=== PATIENT | male | born 1985 | race Caucasian/White ===

== ENCOUNTER 2017-02-19 13:46 | Emergency (ER) | payer OTHER, MEDICAID, SELFPAY | END 2017-02-19 14:14 | disposition home or self-care (01) | PROVIDERS: Emergency Provider Nurse Practitioner; Family Provider Internal Medicine Adolescent Medicine; Visit Provider Nurse Practitioner | DX: A08.4 Viral intestinal infection, unspecified (principal); Z91.013 Allergy to seafood | CPT/HCPCS: 99201 ==

== ENCOUNTER 2017-03-15 16:37 | Emergency (ER) | payer OTHER, MEDICAID, SELFPAY ==
[2017-03-15 17:00] VITALS: BP 137/90; PULSE 98; RESP 16; TEMP 36.8; O2SAT 91; BMI 25.7
--- NOTE | 2017-03-15 23:45 | XR_ITS ---
XR chest 2V HISTORY: ITS.REASON: COUGH ORDERING PHYSICIAN: ANGLEA Ortiz PATIENT AGE: 32 years COMPARISON: None available FINDINGS: The cardiomediastinal silhouette and pulmonary vascularity are within normal limits. The lungs are clear without infiltrates, suspicious nodules, or pleural effusions. No acute bony abnormalities. IMPRESSION: No change with no acute finding
== END 2017-03-15 17:43 | disposition home or self-care (01) ==
PROVIDERS: Emergency Provider Physician Assistant; Family Provider Internal Medicine Adolescent Medicine; PCP Internal Medicine Adolescent Medicine
DX: J20.9 Acute bronchitis, unspecified (principal)
CPT/HCPCS: 71046; 99202; 99282; 99291

== ENCOUNTER 2017-04-03 13:59 | Emergency (ER) | payer OTHER, MEDICAID, SELFPAY ==
[2017-04-03 14:17] VITALS: BP 107/69; PULSE 96; RESP 20; TEMP 36.8; O2SAT 100; BMI 24.4
--- NOTE | 2017-04-03 14:31 | HMH.EDUTC ---
[facility] [place] Clinical Impression: Sinusitis Qualifiers: Sinusitis location: maxillary Chronicity: unspecified Qualified Code(s): J32.0 - Chronic maxillary sinusitis Disposition: Home, Self-Care Condition on Discharge: Good Instructions: Sinusitis, DI for Sinusitis Additional Instructions: Start antibiotic. Sinus infections may take 2-3 days to notice much improvement so be sure to use conservative measures as discussed for symptoms Flonase 2 spray in each nostril daily to help with nasal congestion, sinus an ear pressure/inflammation Lots of Fluids Sleep elevated Humidifer/vaporizer Augmentin can cause GI effects. Probiotics may help to prevent these symptoms Prescriptions: Amoxicillin/Potassium Clav [Augmentin 875-125 Tablet] 1 tab PO Q12H #14 tab predniSONE [Prednisone 20mg Tab] 20 mg PO BID #10 tab Referrals: Jovan Dickinson MD [Primary Care Provider] - Medical Decision Making - Medical Records Medical records reviewed: Yes: I reviewed the patient's medical records. Vital Signs: 04/03/17 14:17 Temperature 98.2 F Temperature Source Temporal Artery Scan Pulse Rate [Right] 96 H Respiratory Rate 20 Blood Pressure [Right Arm] 107/69 Blood Pressure Mean [Right Arm] 81 Blood Pressure Source [Right Arm] Automatic Cuff Blood Pressure Position [Right Arm] Sitting 02 Sat by Pulse Oximetry 100 Oxygen Delivery Method Room Air - Louis Inquiry Pt receiving controlled substance: No Louis was queried for this patient: No [facility] [place] - General Stated complaint: pnuemonia Mode of Arrival: Ambulatory Source of Information: Patient Limitations: No Limitations Description of Symptoms (Recalled from Triage Doc. by RN): RECENT PNEUMONIA, STATES STILL FEELS BAD, COUGH HEENT Symptoms (Recalled from RN notes): Yes Resp Symptoms (Recalled from RN notes): No Skin Symptoms (Recalled from RN notes): No MS Symptoms (Recalled from RN notes): No Functional Status (Recalled from RN notes): N - History of Present Illness Provider Complaint: Patient state that he recently had pneumonia State that he still is having cough, sinus drainage and nasal congestion along with sore throat States that he wanted to come back and get checked to make sure he didn't have pneumonia Also states that he has been blowing out dark yellowish green from nose - Related Data Previous Rx's Medication Instructions Recorded Amoxicillin/Potassium Clav 1 tab PO Q12H #14 tab 04/03/17 [Augmentin 875-125 Tablet] predniSONE [Prednisone 20mg 20 mg PO BID #10 tab 04/03/17 Tab] Allergies Allergy/AdvReac Type Severity Reaction Status Date / Time SHELLFISH (FOOD) Allergy Intermediate ANAPHALAXIS Uncoded 04/03/17 14:21 - Worker's Comp Is this a Worker's Comp case?: No [facility] History I have reviewed the patient's past medical history: Yes 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: Denies:: Cancer, Diabetes Mellitus Type 1, Diabetes Mellitus Type 2, MRSA Amputation: No Fractures: No - *Social History Smoking Status: Current every day smoker Tobacco Type: cigarettes Alcohol Intake: never - Psychiatric History Expresses thoughts of harming self/others: None Suicide Plan Description: No Plan ROS Obtained: Yes All systems reviewed & no additional complaints Physical Exam - General General appearance: alert, in no apparent distress - Expanded ENT Exam Nose exam: Present: sinus tenderness, other (tenderness noted in maxillary sinuses with drainage noted in back of throat) Comment: Throat red irritate drainage noted - Respiratory Respiratory exam: Present: normal lung sounds bilaterally. Absent: respiratory distress - Cardiovascular Cardiovascular exam: Present: regular rate, normal rhythm. Absent: JVD - Neurological Exam Neurological exam: Present: alert, oriented X3
--- NOTE | 2017-04-03 14:32 | XR_ITS ---
XR chest 2V HISTORY: ITS.REASON: congestion ORDERING PHYSICIAN: Kinsey Adams PATIENT AGE: 32 years COMPARISON: 03/15/2017 FINDINGS: The cardiomediastinal silhouette and pulmonary vascularity are within normal limits. The lungs are clear without infiltrates, suspicious nodules, or pleural effusions. No acute bony abnormalities. IMPRESSION: Negative chest, no acute finding
[2017-04-03 15:20] LABS: UTC Influenza A Antigen Negative (Negative); UTC Influenza B Antigen Negative (Negative); UTC Strep Screen (Rapid) Negative (Negative)
== END 2017-04-03 15:32 | disposition home or self-care (01) ==
PROVIDERS: Emergency Provider Nurse Practitioner; Family Provider Internal Medicine Adolescent Medicine; PCP Internal Medicine Adolescent Medicine
DX: J32.0 Chronic maxillary sinusitis (principal); J18.9 Pneumonia, unspecified organism
CPT/HCPCS: 71046; 87804; 87880; 99202

== ENCOUNTER → 2017-11-20 10:54 | Outpatient (CLI) | payer MEDICAID, SELFPAY ==
--- NOTE | 2017-11-20 10:57 | XR_ITS ---
XR chest 2V HISTORY: ITS.REASON: BRONCITIS ORDERING PHYSICIAN: Hayden Price MD PATIENT AGE: 32 years COMPARISON: 07/21/2017 FINDINGS: The cardiomediastinal silhouette and pulmonary vascularity are within normal limits. The lungs are clear without infiltrates, suspicious nodules, or pleural effusions. No acute bony abnormalities. Calcified granulomas present in the left midlung IMPRESSION: Negative chest, no acute finding
== END ==
PROVIDERS: PCP Internal Medicine Adolescent Medicine; Visit Provider Internal Medicine Adolescent Medicine
DX: J40 Bronchitis, not specified as acute or chronic (principal)
CPT/HCPCS: 71046

== ENCOUNTER → 2018-05-12 11:41 | Outpatient (CLI) | payer OTHER, SELFPAY ==
--- NOTE | 2018-05-12 11:46 | XR_ITS ---
XR shoulder LT min 2V HISTORY: Left shoulder pain ITS.REASON: axillary, scapular y and grashy views ORDERING PHYSICIAN: Hay Hubbard MD PATIENT AGE: 33 years Comparison: 01/22/2016 FINDINGS: No fracture or dislocation. No lytic or blastic change. There is normal mineralization. The joint spaces are well-preserved. No significant degenerative/arthritic changes. No erosive changes evident. Incidental lobe as well as small bone island in the humeral head unchanged IMPRESSION: Negative, no acute finding
== END ==
PROVIDERS: PCP Internal Medicine Adolescent Medicine; Visit Provider Orthopaedic Surgery
DX: M25.512 Pain in left shoulder (principal)
CPT/HCPCS: 73030

== ENCOUNTER → 2018-07-07 15:41 | Outpatient (CLI) | payer OTHER, SELFPAY ==
--- NOTE | 2018-07-07 15:45 | XR_ITS ---
XR orbit bilateral min 4V HISTORY: History of metallic foreign body in the eyes. Clearance for MRI needed ITS.REASON: evaluate for metal in the eye prior to MRI ORDERING PHYSICIAN: Gi Lozada MD PATIENT AGE: 33 years Comparison: None TECHNIQUE: AP views are obtained of the orbits with the patient looking up and down FINDINGS: No radio opaque foreign bodies evident. There is cloudiness of the right maxillary sinus consistent with maxillary sinus disease IMPRESSION: No radio opaque orbital foreign body identified Right maxillary sinus disease
--- NOTE | 2018-07-07 15:45 | MR_ITS ---
MR shoulder LT wo con HISTORY:Left shoulder pain, limited range of motion ITS.REASON: left shoulder pain ORDERING PHYSICIAN: Gi Lozada MD PATIENT AGE: 33 years Comparison: 05/12/2018 TECHNIQUE: Standard multiplanar multiecho sequences are performed without contrast. FINDINGS: There is a low-lying acromion with subacromial stenosis of 5 mm. There is focal increased T2 signal involving the greater tuberosity of the humerus. There is thickening with increased T2 signal involving the supraspinatus tendon and inferior to the low-lying acromion consistent with tendinopathy/tendinosis. A partial tear cannot be excluded in this region. A full-thickness tear with tendinous retraction is not apparent. Small amount fluid is present in the subacromial region. Small amount fluid is also present deep to the deltoid. The bicipital tendon is in place. No obvious labral tear. The infraspinatus and teres minor tendons and subscapularis tendons are intact. IMPRESSION: 1. Subacromial stenosis with tendinopathy/tendinosis of the supraspinatus tendon. Cannot exclude a possibility of a minute partial tear at the distal supraspinatus tendon. A full-thickness tear is not felt to be present. There is a small amount of subacromial and subdeltoid fluid. 2. Intense increased T2 signal involving the greater tuberosity of the humerus consistent with a bone bruise with some surrounding subadjacent fluid.
== END ==
LOC: RAD 15:43
PROVIDERS: PCP Internal Medicine Adolescent Medicine; Visit Provider Orthopaedic Surgery
DX: S40.019A Contusion of unspecified shoulder, initial encounter (principal)
CPT/HCPCS: 70200; 73221

== ENCOUNTER 2018-08-19 15:30 | Outpatient (RCR) | payer OTHER, SELFPAY ==
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
--- NOTE | 2018-07-22 14:35 | HMH.RHREAS ---
Rehab Reassessment Rehab OP Re-assessment Start: 07/22/18 14:04 Freq: Status: Active Protocol: Document 07/22/18 14:05 ANUSHKA (Rec: 07/22/18 14:35 ANUSHKA [id number]) Electronically Signed By Valeria Vargas OT 07/22/18 14:05 Rehab Re-assessment Objective Objective Notes Pt has not been seen in 28 days. Pt stopped coming to therapy due to continued pain. Pt returned to doctor. Doctor provided pt with a steroid injection and recommended to continue with therapy. Pt will continue to be seen twice a week in order to engage in AROM, AAROM, Strengthening exercises to left shoulder. Pt will also received modalities such as e- stim and ionto to decrease pain/inflammation. Assessment Progress Assessment Slower Than Expected Assessment Notes Pt reports his pain has improved some since last seen by therapist. He doesn't have much pain in the left shoulder until he has to engage in an activity that is overhead. 7/10 pain during overhead use/ activity. Current AROM L shoulder Flex: 136 degrees Abd: 146 degrees ER: 85 degrees IR: 75 degrees Current MMT L Shoulder Flex: 4+ Abd: 4+ ER: 4+ IR: 4+ Patient goals met N/A Goals Not Met MMT and AROM goals Revised Goals Goal AROM L shoulder Flex: 170 Abd: 170 ER: 85 IR: 75 Goal MMT L shoulder Flex: 5 Abd: 5 ER: 5 IR: 5 Plan Plan Continue with OT plan of care at this time. Frequency of Therapy 2x's a week Duration of therapy
== END 2018-08-19 15:35 | disposition home or self-care (01) ==
LOC: OT 15:30
PROVIDERS: Visit Provider Orthopaedic Surgery
DX: M79.601 Pain in right arm (principal)
CPT/HCPCS: 97014; 97033; 97035; 97110; 97164; 97165; G0283

== ENCOUNTER 2019-07-23 18:29 | Emergency (ER) | payer MEDICAID, SELFPAY ==
[2019-07-23 18:35] VITALS: BP 131/75; PULSE 91; RESP 18; TEMP 36.8; O2SAT 98; BMI 23.7
--- NOTE | 2019-07-23 18:39 | CT_ITS ---
Procedure: CT ABDOMEN PELVIS WO CON Patient Age:34Y CLINICAL INDICATION: N/V/D, RLQ PAIN Nausea vomiting and diarrhea, right lower quadrant pain 2 weeks COMPARISON: No exams were available for comparison TECHNIQUE: Axial images obtained with sagittal and coronal reformats. All CT scans at the facility use one or more dose reduction, viz: automated exposure control, ma/kV adjustment per patient size (including targeted exams where dose is matched to indication, i.e. head), or iterative reconstruction technique. FINDINGS: Lower thorax: No acute finding lung bases clear. Heart unremarkable ABDOMEN: Lack of oral and IV contrast decrease sensitivity somewhat Liver: No masses or biliary dilatation. Gallbladder: Contracted gallbladder likely accounts for upper normal wall thickness. No radiopaque stones common duct normal Pancreas: No fluid collections or prominent findings but there is a slight hazy appearance at the root of the mesentery inferior to the pancreas but nonspecific time but with this you may want check amylase and lipase to exclude pancreatitis. Scattered small nodes at the root of the mesentery and throughout mesentery could reflect mild mesenteric adenitis but overall unimpressive Spleen: unremarkable Adrenals: unremarkable Kidneys/ureters: unremarkable no urinary tract calculi nor obstruction PELVIS: Urinary bladder: Nondistended. No obvious stones or masses. Bladder wall upper normal thickness. Modest prostate. GI tract Stomach: Filled with food, mildly distended. Duodenal loop unremarkable Small-bowel: Overall WNL with upper normal caliber/upper normal wall thickness proximal small bowel/jejunum. Distal small bowel unremarkable there may be some slight increased fluid throughout small bowel. Terminal ileum of contained stool-like material which may incompetent ileocecal valve or diminished motility Appendix: Normal, and the the well visualized. Retrocecal Large bowel: Of moderate to generous solid stool at the right and transverse colon minimal to moderate stool the rectosigmoid and descending colon, no large-bowel bowel dilatation or obstruction. No wall thickening. . Peritoneum: No abnormal fluid collections. No obvious inflammatory changes. No free air. Lymph nodes: No enlarged lymph nodes apparent. But there areScattered small nodes atthroughout mesentery which could reflect mild mesenteric adenitis. Vasculature: No evidence of abdominal aortic aneurysm. No retroperitoneal hemorrhage evident. Bones: No acute fr findings. No lesions. IMPRESSION: Appendix normal . No bowel dilatation or obstruction Slight hazy appearance of the root of the mesentery, inferior to the pancreas. Nonspecific but could reflect some minor inflammation here. Recommend correlation amylase and lipase.. Scattered small nodes throughout the mesentery slight increase in number but could reflect a mild mesenteric adenitis of associated Suggestion of perhaps slight increased fluid throughout small bowel. Nonspecific Normal appearing moderate solid stool within large bowel (no significant diarrhea suggested by CT currently) Dictated by: Gregory Costello MD 07/25/2019 08:42 Electronically signed by Gregory Costello MD in [place] 07/25/2019 08:42
[2019-07-23 18:53] LABS: Basophils # 0.1 K/mm3 (0-0.2); Basophils % 0.7 % (0.1-2.0); Eosinophils # 0.9 K/mm3 (0.0-0.4); Eosinophils % 8.6 % (0.1-12.0); Hematocrit 44.8 % (42.0-52.0); Hemoglobin 14.7 g/dL (14.1-18.0); Lymphocytes # 2.2 K/mm3 (0.7-4.5); Lymphocytes % 20.9 % (10-50); Mean Corpuscular HGB Conc 32.7 g/dL (31.8-35.4); Mean Corpuscular Hemoglobin 26.3 pg (27.0-31.2); Mean Corpuscular Volume 80.4 fl (80-94); Mean Platelet Volume 7.1 fl (7.4-10.4); Monocytes # 0.6 K/mm3 (0.1-1.0); Monocytes % 6.2 % (1.7-9.3); Neutrophils # 6.6 K/mm3 (1.8-7.8); Neutrophils % 63.6 % (37.0-80.0); Platelet Count 378 K/mm3 (142-424); Red Blood Count 5.57 M/mm3 (4.60-6.20); Red Cell Distribution Width 13.8 % (11.5-17.5); White Blood Count 10.3 K/mm3 (4.8-10.8)
--- NOTE | 2019-07-23 18:54 | PC.NURSE ---
PT UNABLE TO URINATE. PT TO CT AT THIS TIME.
[2019-07-23 19:04] LABS: Alanine Aminotransferase 28 U/L (12-78); Albumin Level 4.5 g/dl (3.5-5.0); Albumin/Globulin Ratio 1.5 (1.1-1.8); Alkaline Phosphatase 74 U/L (38-126); Amylase 85 U/L (30-110); Anion Gap 12.6 mEq/L (5-15); Aspartate Amino Transferase 29 U/L (17-59); Blood Urea Nitrogen 16 mg/dl (9-20); Calcium 9.5 mg/dl (8.4-10.2); Carbon Dioxide 27 mmol/L (22.0-30.0); Chloride 105 mmol/L (98-107); Creatinine Clearance Estimated 134 mL/min (50-200); Estimated Glomerular Filt Rate 97 ml/min (>60); GFR (African American) 117 ML/MIN (>60); Globulin 3.1 g/dL (1.3-3.2); Glucose 109 mg/dl (74-100); Lipase 58 U/L (23-300); Potassium 3.6 mmoL/L (3.5-5.1); Sodium 141 mmol/L (136-145); Total Protein,Serum 7.6 g/dl (6.3-8.2)
[2019-07-23 19:13] LABS: Bilirubin,Total < 0.1 mg/dl (0.2-1.3)
--- NOTE | 2019-07-23 19:29 | HMH.EDABDPAI ---
ED Disposition Clinical Impression: Gastroenteritis Disposition: Home, Self-Care Condition on Discharge: Good Instructions: DI for Acute Abdomen Prescriptions: Promethazine HCl 50 mg PO TID 6 Days #20 tab Transmission Status: Pending to [facility] Referrals: Jovan Dickinson MD [Primary Care Provider] - - Critical Care Critical Care Time: No Attestation: On 07/23/19, the high probability of a clinically significant, sudden or life threatening deterioration of the following system(s) required my full and direct attention, intervention and personal management. The time I documented below is in addition to time spent performing reported procedures but includes the following listed in this critical care notation. Medical Decision Making - Medical Records Medical records reviewed: Yes: I reviewed the patient's medical records. - Louis Inquiry Pt receiving controlled substance: No Vital Signs: 07/23/19 18:35 Temperature 98.3 F Temperature Source Oral Pulse Rate [Right Radial] 91 H Respiratory Rate 18 Blood Pressure [Right Arm] 131/75 Blood Pressure Mean [Right Arm] 93 Blood Pressure Source [Right Arm] Automatic Cuff Blood Pressure Position [Right Arm] Sitting 02 Sat by Pulse Oximetry 98 Oxygen Delivery Method Room Air - Lab Data Lab results reviewed: Yes: I reviewed the patient's lab results. Lab Results 07/23/19 18:41: WBC 10.3, RBC 5.57, Hgb 14.7, Hct 44.8, MCV 80.4, MCH 26.3 L, MCHC 32.7, RDW 13.8, Plt Count 378, MPV 7.1 L, Neut % (Auto) 63.6, Lymph % (Auto) 20.9, [place] % (Auto) 6.2, Eos % (Auto) 8.6, Baso % (Auto) 0.7, Neut # (Auto) 6.6, Lymph # (Auto) 2.2, [place] # (Auto) 0.6, Eos # (Auto) 0.9 H, Baso # (Auto) 0.1 07/23/19 18:41: Sodium 141, Potassium 3.6, Chloride 105, Carbon Dioxide 27, Anion Gap 12.6, BUN 16, Creatinine 0.90, Estimated Creat Clear 134, Estimated GFR 97, Est GFR ( Amer) 117, Glucose 109 H, Calcium 9.5, Total Bilirubin < 0.1 L, AST 29, ALT 28, Alkaline Phosphatase 74, Total Protein 7.6, Albumin 4.5, Globulin 3.1, Albumin/Globulin Ratio 1.5, Amylase 85, Lipase 58 Result diagrams: 07/23/19 18:41 07/23/19 18:41 Orders (Tests/Meds): ED MEDICATIONS Generic Name Dose Route Start Last Admin Trade Name Freq PRN Reason Stop Dose Admin Sodium Chloride 1,000 mls @ 999 mls/hr 07/23/19 18:40 07/23/19 18:54 Sod Chlor 0.9% 1000ml Bag IV 07/23/19 19:40 999 mls/hr .Q1H1M ONE Administration Discontinued Medications Generic Name Dose Route Start Last Admin Trade Name Freq PRN Reason Stop Dose Admin Ketorolac Tromethamine 30 mg 07/23/19 19:20 Toradol 30mg/Ml Vial IV 07/23/19 19:21 ONCE ONE Ondansetron HCl 4 mg 07/23/19 18:39 07/23/19 18:54 Zofran 4mg/2ml Vial IV 07/23/19 18:40 4 mg ONCE ONE Administration ORDERS Category Date Time Status CT abdomen pelvis wo con Stat Cat Scan 07/23/19 18:39 Taken Urinalysis and Microscopic Stat Lab 07/23/19 18:39 Ordered - CT Data CT Scan: Abdomen, Pelvis Time Received: 19:[address] Reviewed: Yes: I have viewed the radiologist's interpretation Preliminary Findings: Normal/NAD Abdominal Pain HPI - General Chief Complaint: Abdominal Pain Stated Complaint: V&D, R side Abd Pain Time Seen by Provider: 07/23/19 19:29 Mode of Arrival: Ambulatory Limitations: No Limitations Description of Symptoms (Recalled from ER Triage Doc. by RN): PT C/O INTERMITTENT RLQ PAIN, N/V/D X2 WEEKS - History of Present Illness MD complaint: abdominal pain Onset (ago): week(s) Consistency: intermittent Location: diffuse Severity: moderate Severity scale (1-10): 4 Quality: stabbing, aching Radiation: RLQ Migration to: no migration Relieving factors: nothing Exacerbating factors: nothing Context: foreign travel, possible food poisoning Associated symptoms: denies other symptoms - Related Data Previous Rx's Medication Instructions Recorded Amoxicillin/Potassium Clav 1 tab PO Q12H 10 Days #20
[2019-07-23 19:36] LABS: Microscopic, Urine URINE MICROSCOPIC (MICROSCOPIC)
[2019-07-23 19:42] LABS: Appearance,Urine CLEAR (Clear); Bilirubin,Urine Negative (Negative); Blood, Urine Negative (Negative); Color,Urine YELLOW (Yellow); Glucose,Urine (UA) Negative (Negative); Ketones,Urine Negative (Negative); Leukocyte Esterase,Urine Negative (Negative); Nitrate,Urine Negative (Negative); PH,Urine 6.5 (5.0-8.5); Protein,Urine Negative (Negative); Specific Gravity, Urine 1.025 (1.005-1.030); Urobilinogen,Urine 0.2 EU/dl (0.2)
[2019-07-23 19:46] LABS: Amorphous Sediment,Urine Trace /lpf
[2019-07-23 20:13] VITALS: BP 140/94; PULSE 83; RESP 16; TEMP 36.8; O2SAT 97
== END 2019-07-23 20:17 | disposition home or self-care (01) ==
PROVIDERS: Emergency Provider Family Medicine; PCP Internal Medicine Adolescent Medicine
DX: K52.9 Noninfective gastroenteritis and colitis, unspecified (principal); F17.210 Nicotine dependence, cigarettes, uncomplicated
CPT/HCPCS: 74176; 80053; 81001; 82150; 83690; 85025; 96365; 96375; 99283; J2405

== ENCOUNTER 2019-08-11 01:46 | Emergency (ER) | payer MEDICAID, SELFPAY ==
[2019-08-11] VITALS (11 sets, daily range): BP systolic 118–160; BP diastolic 49–95; PULSE 73–99; RESP 14–18; TEMP 36.4–36.7; O2SAT 88–96; BMI 23.7
--- NOTE | 2019-08-11 01:45 | ECG_ITS ---
APPROVED REPORT Exam: Resting ECG HR:92 bpm ECG Measurements Heart Rate 92 AXES GA 164 P 51 QRSd 118 QRS 79 QT 406 T 41 QTc 502 <Conclusion> Sinus rhythm with occasional premature ventricular complexes Incomplete right bundle branch block NDST-T Changes Prolonged QT Abnormal ECG Electronically signed by : Bridger Lee, 08/12/2019 17:12:53
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
--- NOTE | 2019-08-11 02:16 | CT_ITS ---
PROCEDURE: CT ABDOMEN PELVIS W CON CLINICAL INDICATION: Post chest compressions Abdominal epigastric pain post cold 500 COMPARISON: CT ABDOMEN PELVIS WO CON from 07/23/2019 TECHNIQUE: IV Contrast: 75ML OPTIRAY 350 Oral Contrast none Axial images obtained with sagittal and coronal reformats. All CT scans at the facility use one or more dose reduction, viz: automated exposure control, ma/kV adjustment per patient size (including targeted exams where dose is matched to indication, i.e. head), or iterative reconstruction technique. FINDINGS: LOWER THORAX: Please see chest CT report ABDOMEN & PELVIS: There is mild thickening of the distal esophagus nonspecific. There is mild gastric distension. The liver, gallbladder, spleen, adrenal glands, pancreas, and kidneys have an unremarkable appearance. Unremarkable appendix. No intestinal obstruction or free air. Bowel gas pattern is nonspecific with nondistended fluid-filled loops of small bowel. No abnormal fluid collections. No acute bony findings.. Scattered small mesenteric nodes are present which are nonspecific.. There is a small left renal cyst anteriorly at 5 mm. IMPRESSION: 1. Moderate gastric distension. 2. Otherwise negative Dictated by: Suhas Jackson MD 08/11/2019 09:20 Electronically signed by Suhas Jackson MD in [place] 08/11/2019 09:20
--- NOTE | 2019-08-11 02:16 | CT_ITS ---
PROCEDURE: CT ANGIO CHEST CLINCIAL INDICATION: Post chest compressions Pain, injury, trauma, status post chest compressions now with chest pain, blunt trauma with contusion or hematoma, post code 500 COMPARISON: No exams were available for comparison TECHNIQUE: IV Contrast: 70ML OPTIRAY 350 Axial images obtained with sagittal and coronal reformats. All CT scans at the facility use one or more dose reduction, viz: automated exposure control, ma/kV adjustment per patient size (including targeted exams where dose is matched to indication, i.e. head), or iterative reconstruction technique. FINDINGS: HEART AND MEDIASTINAL STRUCTURES: No evidence of aortic aneurysm, dissection, or pulmonary embolus. There are peripheral pulmonary arteries are not well opacified. The central pulmonary arteries are unremarkable. No mediastinal or hilar mass. No evidence of mediastinal hematoma. No evidence of sternal fracture. LUNGS AND PLEURAL SPACES: Consolidation is present involving the posterior segment of the right upper lobe and superior segment of the right lower lobe. There is mild atelectatic change in the superior segment of the left lower lobe. There is mild diffuse inter lobular septal thickening. No obvious effusion. No evidence of pneumothorax. BONY STRUCTURES: No acute finding UPPER ABDOMEN: Please see abdomen report ADDITIONAL FINDINGS: No other significant abnormalities. IMPRESSION: 1. No evidence of pulmonary embolus or aortic aneurysm or dissection. 2. Bilateral airspace disease. Aspiration pneumonia is considered. There is also interlobular septal thickening which is nonspecific and could be related to fluid volume overload or inflammatory/infectious etiology. 3. No acute fracture apparent Dictated by: Suhas Jackson MD 08/11/2019 09:17 Electronically signed by Suhas Jackson MD in [place] 08/11/2019 09:17
--- NOTE | 2019-08-11 02:16 | XR_ITS ---
PROCEDURE: XR CHEST AP CLINICAL HISTORY: Post chest compressions Code blue COMPARISON: CXR2V XR chest 2V from 07/21/2017 CXR2V XR chest 2V from 11/20/2017 CXR2V XR chest 2V from 05/08/2018 CT ANGIO CHEST from 08/11/2019 XR CHEST 2V from 08/11/2019 FINDINGS: The cardiomediastinal silhouette and pulmonary vascularity are within normal limits. Study is somewhat under penetrated. There is no evidence of pneumothorax. Atelectatic changes are present in the left mid lung. There is some patchy density in the right upper lobe which could be due to underlying pneumonia No acute bony abnormalities. IMPRESSION: Right upper lobe pneumonia with left midlung atelectasis. Aspiration would be considered in this patient history of overdose Dictated by: Suhas Jackson MD 08/11/2019 08:22 Electronically signed by Suhas Jackson MD in [place] 08/11/2019 08:22
[2019-08-11 02:25] LABS: Basophils # 0.1 K/mm3 (0-0.2); Basophils % 0.9 % (0.1-2.0); Eosinophils # 0.3 K/mm3 (0.0-0.4); Eosinophils % 3.3 % (0.1-12.0); Hematocrit 42.4 % (42.0-52.0); Hemoglobin 14.5 g/dL (14.1-18.0); Lymphocytes # 1.5 K/mm3 (0.7-4.5); Mean Corpuscular HGB Conc 34.1 g/dL (31.8-35.4); Mean Corpuscular Hemoglobin 28.4 pg (27.0-31.2); Mean Corpuscular Volume 83.1 fl (80-94); Mean Platelet Volume 7.3 fl (7.4-10.4); Monocytes # 0.4 K/mm3 (0.1-1.0); Monocytes % 4.4 % (1.7-9.3); Neutrophils # 7.6 K/mm3 (1.8-7.8); Neutrophils % 76.4 % (37.0-80.0); Platelet Count 256 K/mm3 (142-424); White Blood Count 9.9 K/mm3 (4.8-10.8)
[2019-08-11 02:30] LABS: Alanine Aminotransferase 32 U/L (12-78); Albumin/Globulin Ratio 1.4 (1.1-1.8); Alkaline Phosphatase 84 U/L (38-126); Anion Gap 8.9 mEq/L (5-15); Aspartate Amino Transferase 36 U/L (17-59); Bilirubin,Total 0.2 mg/dl (0.2-1.3); Blood Urea Nitrogen 21 mg/dl (9-20); Calcium 8.6 mg/dl (8.4-10.2); Carbon Dioxide 26 mmol/L (22.0-30.0); Chloride 104 mmol/L (98-107); Creatinine Clearance Estimated 150 mL/min (50-200); Estimated Glomerular Filt Rate 111 ml/min (>60); GFR (African American) 134 ML/MIN (>60); Globulin 2.8 g/dL (1.3-3.2); Glucose 257 mg/dl (74-100); Sodium 136 mmol/L (136-145); Total Protein,Serum 6.8 g/dl (6.3-8.2)
[2019-08-11 02:33] LABS: Potassium 2.9 mmoL/L (3.5-5.1)
--- NOTE | 2019-08-11 02:43 | PC.NURSE ---
pt to radiology
[2019-08-11 02:46] LABS: Troponin I < 0.01 ng/ml (0.00-0.034)
--- NOTE | 2019-08-11 03:06 | PC.NURSE ---
notified of critical lab value
[2019-08-11 03:15] LABS: Microscopic, Urine URINE MICROSCOPIC (MICROSCOPIC)
[2019-08-11 03:16] LABS: Appearance,Urine CLEAR (Clear); Bilirubin,Urine Negative (Negative); Blood, Urine Negative (Negative); Color,Urine YELLOW (Yellow); Glucose,Urine (UA) 2+ (Negative); Ketones,Urine Negative (Negative); Leukocyte Esterase,Urine Negative (Negative); Nitrate,Urine Negative (Negative); Protein,Urine Negative (Negative); Specific Gravity, Urine >= 1.030 (1.005-1.030); Urobilinogen,Urine 0.2 EU/dl (0.2)
--- NOTE | 2019-08-11 03:16 | HMH.EDOD ---
ED Disposition Clinical Impression: Heroin use, Pneumonitis Disposition: Home, Self-Care Condition on Discharge: Good Instructions: DI for Drug Overdose in Adults Additional Instructions: call pcp for adal reyna for in am Prescriptions: predniSONE [Prednisone 20mg Tab] 20 mg PO BID #10 tab Transmission Status: Sent to [facility] Referrals: Provider,Referral, [Primary Care Provider] - - Critical Care Critical Care Time: No Attestation: On 08/11/19, the high probability of a clinically significant, sudden or life threatening deterioration of the following system(s) required my full and direct attention, intervention and personal management. The time I documented below is in addition to time spent performing reported procedures but includes the following listed in this critical care notation. Medical Decision Making - Medical Records Medical records reviewed: Yes: I reviewed the patient's medical records. - Louis Inquiry Pt receiving controlled substance: No Vital Signs: 08/11/19 01:57 08/11/19 02:18 08/11/19 04:01 Temperature 98.0 F Temperature Source Oral Pulse Rate [Right] 93 H 99 H 83 Respiratory Rate 16 18 18 Blood Pressure [Right Arm] 126/75 118/75 138/76 Blood Pressure Mean [Right Arm] 92 89 96 Blood Pressure Source [Right Arm] Automatic Cuff Blood Pressure Position [Right Arm] Sitting 02 Sat by Pulse Oximetry 88 L 92 L 94 L Oxygen Delivery Method Room Air Nasal Cannula Nasal Cannula Oxygen Flow Rate (LPM) 3 3 08/11/19 04:10 08/11/19 04:51 08/11/19 05:10 Temperature 97.6 F Temperature Source Oral Pulse Rate [Right] 81 85 77 Respiratory Rate 14 16 14 Blood Pressure [Right Arm] 138/76 140/49 L 145/84 H Blood Pressure Mean [Right Arm] 96 79 104 Blood Pressure Source [Right Arm] Automatic Cuff Blood Pressure Position [Right Arm] Sitting 02 Sat by Pulse Oximetry 96 92 L 96 Oxygen Delivery Method Nasal Cannula Nasal Cannula Nasal Cannula Oxygen Flow Rate (LPM) 3 3 3 08/11/19 05:38 08/11/19 05:39 08/11/19 06:09 Temperature 97.5 F L Temperature Source Oral Pulse Rate [Right] 88 73 76 Respiratory Rate 18 14 14 Blood Pressure [Right Arm] 160/93 H 160/93 H 131/78 Blood Pressure Mean [Right Arm] 115 115 95 Blood Pressure Source [Right Arm] Blood Pressure Position [Right Arm] 02 Sat by Pulse Oximetry 94 L 95 90 L Oxygen Delivery Method Nasal Cannula Nasal Cannula Room Air Oxygen Flow Rate (LPM) 3 3 08/11/19 06:20 Temperature Temperature Source Pulse Rate [Right] 73 Respiratory Rate 14 Blood Pressure [Right Arm] Blood Pressure Mean [Right Arm] Blood Pressure Source [Right Arm] Blood Pressure Position [Right Arm] 02 Sat by Pulse Oximetry 91 L Oxygen Delivery Method Room Air Oxygen Flow Rate (LPM) - Lab Data Lab results reviewed: Yes: I reviewed the patient's lab results. Lab Results 08/11/19 01:55: WBC 9.9, RBC 5.10, Hgb 14.5, Hct 42.4, MCV 83.1, MCH 28.4, MCHC 34.1, RDW 14.0, Plt Count 256, MPV 7.3 L, Neut % (Auto) 76.4, Lymph % (Auto) 15.0, Maries % (Auto) 4.4, Eos % (Auto) 3.3, Baso % (Auto) 0.9, Neut # (Auto) 7.6, Lymph # (Auto) 1.5, Maries # (Auto) 0.4, Eos # (Auto) 0.3, Baso # (Auto) 0.1 08/11/19 01:55: Sodium 136, Potassium 2.9 L*, Chloride 104, Carbon Dioxide 26, Anion Gap 8.9, BUN 21 H, Creatinine 0.80, Estimated Creat Clear 150, Estimated GFR 111, Est GFR ( Amer) 134, Glucose 257 H, Calcium 8.6, Total Bilirubin 0.2, AST 36, ALT 32, Alkaline Phosphatase 84, Troponin I < 0.01, Total Protein 6.8, Albumin 4.0, Globulin 2.8, Albumin/Globulin Ratio 1.4 08/11/19 01:55: SARS-CoV-2 IgG Ab (Rapid) Negative, SARS-CoV-2 IgM Ab (Rapid) Negative 08/11/19 03:07: Urine Color Yellow, Urine Appearance Clear, Urine pH 6.0, Ur Specific Purchase >= 1.030, Urine Protein Negative, Urine Glucose (UA) 2+, Urine Ketones Negative, Urine Blood Negative, Urine Nitrate Negative, Urine Bilirubin Negative, Urine Urobilinogen 0.2, Ur Leukocyte Esterase Negative,
[2019-08-11 03:27] LABS: Barbiturates Screen,Urine Negative ng/ml (<200)
[2019-08-11 03:28] LABS: Benzodiazepines Screen,Urine Negative ng/ml (<200)
[2019-08-11 03:29] LABS: Amphetamine/Metha Screen,Urine Negative ng/ml (<1000); Bacteria,Urine 1+ /lpf; Cannabinoid Screen,Urine Negative ng/ml (<50); Mucus,Urine 1+ /lpf
[2019-08-11 03:30] LABS: Cocaine Screen,Urine Negative ng/ml (<300); Methadone Screen,Urine Negative ng/ml (<300)
[2019-08-11 03:31] LABS: Opiate Screen,Urine Negative ng/ml (<300)
[2019-08-11 03:32] LABS: Phencyclidine Screen,Urine Negative ng/ml (<25)
[2019-08-11 04:20] LABS: Coronavirus 19 IgG Antibody Negative (Negative); Coronavirus 19 IgM Antibody Negative (Negative)
--- NOTE | 2019-08-11 05:30 | XR_ITS ---
PROCEDURE: XR CHEST 2V CLINICAL HISTORY: chest pain with SOA COMPARISON: CXR2V XR chest 2V from 11/20/2017 CXR2V XR chest 2V from 05/08/2018 CT ANGIO CHEST from 08/11/2019 XR CHEST AP from 08/11/2019 FINDINGS: The cardiomediastinal silhouette and pulmonary vascularity are within normal limits. Persistent increased density is noted in the right upper lobe consistent with pneumonia. Aspiration should be considered in this patient with history of overdose and assess the taken. Atelectatic changes are present in the left midlung. No evidence of pneumothorax. No acute bony abnormalities. IMPRESSION: Right upper lobe pneumonia and left midlung atelectasis. No significant change Dictated by: Suhas Jackson MD 08/11/2019 08:23 Electronically signed by Suhas Jackson MD in [place] 08/11/2019 08:23
--- NOTE | 2019-08-11 05:50 | PC.NURSE ---
O2 turned off for RA trial per Dr Ann
--- NOTE | 2019-08-11 06:07 | PC.NURSE ---
Pt is continuously bouncing up and down with his O2 sats from 86 to 92 on room air, consistent with sleep apnea, pt has a loud audible snore.
[2019-08-11 06:19] LABS: Troponin I 0.01 ng/ml (0.00-0.034)
--- NOTE | 2019-08-11 06:49 | PC.NURSE ---
Pt demonstrated Insitive Spirometer 10 times up to 1999
--- NOTE | 2019-08-11 06:51 | PC.NURSE ---
Pt is discharged, is calling for a ride.
== END 2019-08-11 07:55 | disposition home or self-care (01) ==
PROVIDERS: Emergency Provider Emergency Medicine
DX: T40.1X1A Poisoning by heroin, accidental (unintentional), initial encounter (principal); J70.2 Acute drug-induced interstitial lung disorders; Y92.009 Unspecified place in unspecified non-institutional (private) residence as the place of occurrence of the external cause; K21.9 Gastro-esophageal reflux disease without esophagitis; F17.210 Nicotine dependence, cigarettes, uncomplicated
CPT/HCPCS: 71045; 71046; 71275; 74177; 80053; 80305; 81001; 84484; 85025; 86328; 93005; 96365; 96366; 96375; 99285; Q9967

== ENCOUNTER → 2019-08-17 14:22 | Outpatient (CLI) | payer MEDICAID, SELFPAY ==
[2019-08-17 16:42] LABS: Opiate Screen,Urine Negative ng/ml (<300); Phencyclidine Screen,Urine Negative ng/ml (<25)
[2019-08-17 17:11] LABS: Barbiturates Screen,Urine Negative ng/ml (<200)
[2019-08-17 17:12] LABS: Amphetamine/Metha Screen,Urine Negative ng/ml (<1000); Benzodiazepines Screen,Urine Negative ng/ml (<200)
[2019-08-17 17:13] LABS: Cocaine Screen,Urine Negative ng/ml (<300); Methadone Screen,Urine Negative ng/ml (<300)
[2019-08-17 17:14] LABS: Cannabinoid Screen,Urine Negative ng/ml (<50)
== END ==
PROVIDERS: Visit Provider Nurse Practitioner Psychiatric/Mental Health
DX: Z02.83 Encounter for blood-alcohol and blood-drug test (principal)
CPT/HCPCS: 80305

== ENCOUNTER → 2019-10-03 20:15 | Outpatient (CLI) | payer MEDICAID, SELFPAY | PROVIDERS: PCP Internal Medicine Adolescent Medicine; Visit Provider Specialist | DX: G47.9 Sleep disorder, unspecified (principal); R06.83 Snoring; R40.0 Somnolence; Z76.89 Persons encountering health services in other specified circumstances | CPT/HCPCS: G0399 ==

== ENCOUNTER 2019-12-14 17:31 | Emergency (ER) | payer MEDICAID, SELFPAY ==
[2019-12-14 17:42] VITALS: BP 138/87; PULSE 66; RESP 19; TEMP 36.6; O2SAT 98; BMI 23.6
--- NOTE | 2019-12-14 18:10 | HMH.EDUTC ---
[facility] [place] Disposition Clinical Impression: Bronchitis URI (upper respiratory infection) Qualifiers: URI type: unspecified URI Qualified Code(s): J06.9 - Acute upper respiratory infection, unspecified Disposition: Home, Self-Care Condition on Discharge: Good Instructions: Acute Bronchitis, DI for Acute Bronchitis, Sore Throat, DI for Nasal Congestion Additional Instructions: ? Start antibiotic today. Be sure to complete entire prescription even if feeling better ? Monitor temp. Tylenol every 4 hours as needed and / or ibuprofen every 6 hours as needed ( As long as your primary care physician has told you that it ok to take both. For fever/aches/pains ER if no less than 101 despite Tylenol or Motrin ? Humidifier/vaporizer or hot steamy shower ? Inhaler every 4-6 hours as needed like we discussed. If unsure how to use it, ask pharmacist to demonstrate how. Should help open airways and improve cough, wheezing, and shortness of breath ? Mucinex during the day for your cough and cough suppressant only at night. Be sure to drink lots of water. Insurance may not cover a prescriptions for mucinex. Might be cheaper to get 400mg tablets and take 2 tablet in the morning, mid-day and evening with lots of water. Start steroid today. Helps with inflammation therefore, cough and wheezing. Follow directions on the package. Reviewed side effects. Patient reports taking them before. Follow up IMMEDIATELY for new or worsening of symptoms OR no noticeable improvement over the next 48-72 hours. 911 immediately for any life threatening symptoms such as chest pain or difficulty breathing Prescriptions: Albuterol Sulfate [Proventil-HFA 90mcg/puff Inh] 1 - 2 puffs IH Q4HP PRN #1 inh PRN Reason: Shortness Of Breath Transmission Status: Pending to [facility] methylPREDNISolone [Medrol 4mg tab] 4 mg PO DIRECTED #21 tab Transmission Status: Pending to [facility] Azithromycin [Z-Marbin 250mg Tab] 250 mg PO DIRECTED #6 tab Transmission Status: P[facility] to [facility] Referrals: Jovan Dickinson MD [Primary Care Provider] - As needed Forms: Work/School Release Time of Disposition: 18:20 Medical Decision Making - Louis Inquiry Pt receiving controlled substance: No Louis was queried for this patient: No Vital Signs: 12/14/19 17:42 Temperature 97.8 F Temperature Source Oral Pulse Rate [Radial] 66 Respiratory Rate 19 Blood Pressure [Right Arm] 138/87 Blood Pressure Mean [Right Arm] 104 Blood Pressure Source [Right Arm] Automatic Cuff Blood Pressure Position [Right Arm] Sitting 02 Sat by Pulse Oximetry 98 Oxygen Delivery Method Room Air Medical Decision Narrative: Patient states that he has taken azithromycin in the past without reactions or complications, discussed chest xray and patient declined at this time [facility] [place] HPI - General Stated complaint: COUGH Time Seen by Provider: 12/14/19 18:10 Mode of Arrival: Ambulatory Source of Information: Patient Limitations: No Limitations Description of Symptoms (Recalled from Triage Doc. by RN): cough and chest congestion x 2 weeks HEENT Symptoms (Recalled from RN notes): Yes Resp Symptoms (Recalled from RN notes): No Skin Symptoms (Recalled from RN notes): No MS Symptoms (Recalled from RN notes): No Functional Status (Recalled from RN notes): wnl - History of Present Illness Provider Complaint: Patient states that he is an everyday smoker and typically gets bronchitis around this time every year and has to have a round of antibiotics States that he has been having cough and nasal congestion and feels like it is trying to move into his chest so he came in to get checked before he ended up with pneumonia again - Related Data Home Medications Medication Instructions Recorded Confirmed cariprazine 1.5 mg capsule 1.5 mg PO DAILY 09/19/19 11/09/19 naltrexone microspheres 380 mg 380 mg IM each 09/19/19 11/09/19 intramuscular suspension,extended release P
[2019-12-14 18:26] VITALS: BP 138/87; PULSE 66; RESP 19; TEMP 36.6; O2SAT 98
== END 2019-12-14 18:27 | disposition home or self-care (01) ==
PROVIDERS: Emergency Provider Nurse Practitioner; PCP Internal Medicine Adolescent Medicine
DX: J20.9 Acute bronchitis, unspecified (principal); F41.8 Other specified anxiety disorders; K21.9 Gastro-esophageal reflux disease without esophagitis; J45.909 Unspecified asthma, uncomplicated; F17.210 Nicotine dependence, cigarettes, uncomplicated; Z79.899 Other long term (current) drug therapy
CPT/HCPCS: 99201

== ENCOUNTER 2019-12-31 16:59 | Emergency (ER) | payer MEDICAID, SELFPAY ==
[2019-12-31 17:07] VITALS: BP 146/96; PULSE 89; RESP 16; TEMP 36.8; O2SAT 98; BMI 27.8
[2019-12-31 17:25] VITALS: BP 146/96; PULSE 89; RESP 16; TEMP 36.8; O2SAT 98; BMI 27.9
--- NOTE | 2019-12-31 17:27 | XR_ITS ---
PROCEDURE: XR KNEE RT 3V CLINICAL INDICATION: chainsaw injury COMPARISON: No exams were available for comparison FINDINGS: No fracture or dislocation. No lytic or blastic change. There is normal mineralization. The joint spaces are well-preserved. There is minor cortical irregularity of the distal femur possibly due to old nondisplaced incomplete fracture or possibly a small avulsive cortical irregularity no significant degenerative/arthritic changes. No erosive changes evident. Other findings:None. IMPRESSION: No acute findings. Dictated by: Dr. Obi Baca MD 01/01/2020 08:39 Dr. Obi Baca MD in [place] 01/01/2020 08:39
--- NOTE | 2019-12-31 18:54 | HMH.EDUTC ---
[facility] [place] Disposition Clinical Impression: Contact with chainsaw as cause of accidental injury, Need for Tdap vaccination Laceration of right knee Qualifiers: Encounter type: initial encounter Qualified Code(s): S81.011A - Laceration without foreign body, right knee, initial encounter Disposition: Home, Self-Care Condition on Discharge: Good Instructions: How to Care for a Laceration After Repair, DI for Laceration Repair -- Complex Suture, How to Use a Knee Immobilizer, Tetanus, Diphtheria, Pertussis (Tdap) Vaccine Additional Instructions: The sutures need to be removed in 10 to 12 days. Keep the wound clean and dry. Keep a dressing on it if you are going to be getting it dirty. Watch the for signs of infection, such as redness, swelling, drainage, fever. etc. Take the antibiotics as directed. Take tylenol or ibuprofen for pain. Follow up with your regular doctor. GO TO THE ER FOR ANY WORSENING SYMPTOMS OR CONCERNS. Prescriptions: cephALEXin [Keflex 500mg Cap] 500 mg PO Q6H 10 Days #40 cap Transmission Status: Received by [id number] Referrals: Jovan Dickinson MD [Primary Care Provider] - Forms: Work/School Release Time of Disposition: 19:04 Medical Decision Making - Medical Records Medical records reviewed: No: I reviewed the patient's medical records. - Louis Inquiry Pt receiving controlled substance: No Vital Signs: 12/31/19 17:07 12/31/19 17:25 12/31/19 19:18 Temperature 98.2 F 98.2 F 98.2 F Temperature Source Oral Oral Pulse Rate 89 Pulse Rate [Left Radial] 89 89 Respiratory Rate 16 16 16 Blood Pressure 146/96 H Blood Pressure [Left Arm] 146/96 H 146/96 H Blood Pressure Mean [Left Arm] 112 112 Blood Pressure Source [Left Arm] Automatic Cuff Automatic Cuff Blood Pressure Position [Left Arm] Sitting Sitting 02 Sat by Pulse Oximetry 98 98 Oxygen Delivery Method Room Air Room Air Orders (Tests/Meds): ED MEDICATIONS Discontinued Medications Generic Name Dose Route Start Last Admin Trade Name Freq PRN Reason Stop Dose Admin Ceftriaxone Sodium 1 gm 12/31/19 19:00 12/31/19 19:10 Ceftriaxone 1gm Vial IM 12/31/19 19:01 1 gm ONCE ONE Administration Protocol Lidocaine HCl 0 ml 12/31/19 19:00 12/31/19 19:10 Lidocaine 1% 5ml Pf Vial IM 12/31/19 19:01 2.1 ml ONCE ONE Administration Tetanus/Reduced Diphtheria/Acell Pertussis 0.5 ml 12/31/19 19:00 12/31/19 19:10 Tet/Diphth/Pert-Adult 0.5ml Syringe IM 12/31/19 19:01 0.5 ml .ONCE ONE Administration ORDERS Category Date Time Status Knee XR right 3 views [XR knee RT 3V] Stat Exams 12/31/19 17:27 Taken [facility] [place] HPI - General Stated complaint: AO [id number] @1500 lac to R knee Time Seen by Provider: 12/31/19 17:15 Mode of Arrival: Ambulatory Source of Information: Patient Limitations: No Limitations Description of Symptoms (Recalled from Triage Doc. by RN): PATIENT C/O LACERATION TO RIGHT KNEE. 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 UNKNOWN WHEN LAST TETANUS SHOT WAS HEENT Symptoms (Recalled from RN notes): No Resp Symptoms (Recalled from RN notes): No Skin Symptoms (Recalled from RN notes): Yes MS Symptoms (Recalled from RN notes): No Functional Status (Recalled from RN notes): WNL - History of Present Illness Provider Complaint: He was working with a chain saw when he slipped and the running chain saw came down on his right knee. He has a laceration over his knee cap area. His tetanus immunization is not up to date. - Related Data Previous Rx's Medication Instructions Recorded cephALEXin [Keflex 500mg Cap] 500 mg PO Q6H 10 Days #40 cap 12/31/19 Allergies Allergy/AdvReac Type Severity Reaction Status Date / Time shellfish derived Allergy Severe Anaphylaxis Verified 11/09/19 15:21 - Worker's Comp Is this a Worker's Comp case?: No [facility] History - Hepatitis A Screen Drug use history?: No High risk sexual behaviors?: No
[2019-12-31 19:18] VITALS: BP 146/96; PULSE 89; RESP 16; TEMP 36.8; O2SAT 98
== END 2019-12-31 19:20 | disposition home or self-care (01) ==
PROVIDERS: Emergency Provider Nurse Practitioner Family; PCP Internal Medicine Adolescent Medicine
DX: S81.011A Laceration without foreign body, right knee, initial encounter (principal); W31.2XXA Contact with powered woodworking and forming machines, initial encounter; Y92.89 Other specified places as the place of occurrence of the external cause; F41.8 Other specified anxiety disorders; F17.210 Nicotine dependence, cigarettes, uncomplicated; Z23 Encounter for immunization; K21.9 Gastro-esophageal reflux disease without esophagitis
CPT/HCPCS: 12002; 73562; 90471; 90715; 96372; 99202

== ENCOUNTER 2020-01-10 17:27 | Emergency (ER) | payer MEDICAID, SELFPAY ==
[2020-01-10 17:30] VITALS: BP 116/75; PULSE 77; RESP 22; TEMP 36.7; O2SAT 95; BMI 27.8
--- NOTE | 2020-01-10 17:49 | HMH.EDUTC ---
[facility] [place] Disposition Clinical Impression: Pneumonia Qualifiers: Pneumonia type: due to unspecified organism Laterality: right Lung location: lower lobe of lung Qualified Code(s): J18.9 - Pneumonia, unspecified organism Sinusitis Qualifiers: Sinusitis location: unspecified location Chronicity: acute Recurrence: non-recurrent Qualified Code(s): J01.90 - Acute sinusitis, unspecified Disposition: Home, Self-Care Condition on Discharge: Good Instructions: Pneumonia-Adult Additional Instructions: Drink plenty of fluids. Take tylenol or ibuprofen for pain or fever. Take the medications as directed. Follow up with your regular doctor. GO TO THE ER FOR ANY WORSENING SYMPTOMS Don't start the oral steroids until tomorrow, since you had the shot here today. The cough medication (promethazine dm) will make you drowsy, so don't drive or operate heavy machinery after taking it. Eat yogurt a few times per day or take a probiotic while you are on the antibiotics. Prescriptions: Albuterol Sulfate [Albuterol Sulfate Hfa] 2 puffs IH Q6HP PRN 30 Days #1 hfa.aer.ad PRN Reason: Shortness Of Breath Transmission Status: Received by [facility] Promethazine/Dextromethorphan [Promethazine-Dm Syrup] 5 ml PO Q6HP PRN #240 syrup PRN Reason: Cough Transmission Status: Received by [facility] Amoxicillin/Potassium Clav [Augmentin 875-125 Tablet] 1 tab PO Q12H 10 Days #20 tab Transmission Status: Received by [facility] Doxycycline Hyclate [Doxycycline 100mg Capsule] 100 mg PO Q12 10 Days #20 cap Transmission Status: Received by [facility] methylPREDNISolone [Medrol] 4 mg PO DIRECTED 6 Days #21 tab.ds.pk Transmission Status: Received by [facility] Referrals: Jovan Dickinson MD [Primary Care Provider] - Forms: Work/School Release Time of Disposition: 19:03 Medical Decision Making - Medical Records Medical records reviewed: No: I reviewed the patient's medical records. - Louis Inquiry Pt receiving controlled substance: No Vital Signs: 01/10/20 17:30 01/10/20 19:12 Temperature 98.1 F 98.1 F Temperature Source Oral Pulse Rate 77 Pulse Rate [Left Brachial] 77 Respiratory Rate 22 22 Blood Pressure 116/75 Blood Pressure [Left Arm] 116/75 Blood Pressure Mean [Left Arm] 88 Blood Pressure Source [Left Arm] Automatic Cuff Blood Pressure Position [Left Arm] Sitting 02 Sat by Pulse Oximetry 95 Oxygen Delivery Method Room Air Orders (Tests/Meds): ED MEDICATIONS Discontinued Medications Generic Name Dose Route Start Last Admin Trade Name Yosef PRN Reason Stop Dose Admin Ceftriaxone Sodium 1 gm 01/10/20 18:48 01/10/20 18:55 Ceftriaxone 1gm Vial IM 01/10/20 18:49 1 gm ONCE ONE Administration Protocol Lidocaine HCl 0 ml 01/10/20 18:48 01/10/20 18:55 Lidocaine 1% 5ml Pf Vial IM 01/10/20 18:49 2.1 ml ONCE ONE Administration Methylprednisolone Sodium Succinate 125 mg 01/10/20 18:48 01/10/20 18:55 Methylprednisolone Sod Succ 125mg Vial IM 01/10/20 18:49 125 mg ONCE ONE Administration ORDERS Category Date Time Status XR chest 2V Stat Exams 01/10/20 17:51 Taken Covid-19 Nasal PCR Sendout [facility] Stat Lab 01/10/20 17:55 Received - Radiology Data #1 Image(s): Chest Image Reviewed: Yes I reviewed the patient's radiology image Preliminary Findings: Abnormal possible right lower lobe pneumonia. [facility] [place] HPI - General Stated complaint: possible bronchitis or pneumonia Time Seen by Provider: 01/10/20 17:49 Mode of Arrival: Ambulatory Source of Information: Patient Limitations: No Limitations Description of Symptoms (Recalled from Triage Doc. by RN): PATIENT C/O COUGH WITH CLEAR SPUTUM AND SOA X 2 DAYS; BELIEVES HE HAS BRONCHITIS HEENT Symptoms (Recalled from RN notes): No Resp Symptoms (Recalled from RN notes): Yes Skin Symptoms (Recalled from RN notes): No MS Symptoms (Recalled from RN notes): No
--- NOTE | 2020-01-10 17:51 | XR_ITS ---
PROCEDURE: XR CHEST 2V CLINICAL HISTORY: COUGH Shortness of air, cough, smoker COMPARISON: CR CXR2V XR chest 2V from 05/08/[address] ANGIO CHEST from 08/11/2019 CR XR CHEST 2V from 08/11/2019 CR XR CHEST AP from 08/11/2019 FINDINGS: The cardiomediastinal silhouette and pulmonary vascularity are within normal limits. Changes of COPD. Mild atelectatic changes right lower lobe. There is a faint nodular density in the right lung base overlying the 5th rib anteriorly possibly due to nipple shadow. Follow-up may confirm. Increased density overlies the left 1st rib anteriorly and could be related to sclerosis of the rib versus parenchymal opacity in the chest. No acute bony abnormalities. IMPRESSION: COPD with right basilar atelectasis and possible nipple shadow on the right. Nonspecific increased density overlies left 1st rib and may be due to an area of rib sclerosis or parenchymal opacification. Follow-up may confirm stability. Dictated by: Suhas Jackson MD 01/11/2020 05:20 Suhas Jackson MD in [place] 01/11/2020 05:20
[2020-01-10 19:12] VITALS: BP 116/75; PULSE 77; RESP 22; TEMP 36.7; O2SAT 95
[2020-01-12 17:47] LABS: Covid-19 Nasal PCR Sendout Lex Not Detected
== END 2020-01-10 19:15 | disposition home or self-care (01) ==
PROVIDERS: Emergency Provider Nurse Practitioner Family; PCP Internal Medicine Adolescent Medicine
DX: Z20.828 Contact with and (suspected) exposure to other viral communicable diseases (principal); J18.9 Pneumonia, unspecified organism; J01.90 Acute sinusitis, unspecified; K21.9 Gastro-esophageal reflux disease without esophagitis; J45.909 Unspecified asthma, uncomplicated; F41.8 Other specified anxiety disorders; Z79.899 Other long term (current) drug therapy
CPT/HCPCS: 71046; 96372; 99202; U0004

== ENCOUNTER 2020-01-26 22:36 | Emergency (ER) | payer MEDICAID, SELFPAY ==
[2020-01-26 22:46] VITALS: BP 156/98; PULSE 81; RESP 16; TEMP 36.5; O2SAT 98; BMI 27.9
--- NOTE | 2020-01-26 23:10 | HMH.EDWNDL ---
ED Disposition Clinical Impression: Open wound of right knee Qualifiers: Encounter type: initial encounter Qualified Code(s): S81.001A - Unspecified open wound, right knee, initial encounter Disposition: Home, Self-Care Condition on Discharge: Good Instructions: DI for Wound Dehiscence Additional Instructions: call pcp about culture results and keep clean and dressed Prescriptions: Mupirocin [Bactroban 2% Ointment 22gm tube] 1 applicatio TP BID #1 tube Transmission Status: Pending to [facility] Referrals: Jovan Dickinson MD [Primary Care Provider] - - Critical Care Critical Care Time: No Attestation: On 01/26/20, the high probability of a clinically significant, sudden or life threatening deterioration of the following system(s) required my full and direct attention, intervention and personal management. The time I documented below is in addition to time spent performing reported procedures but includes the following listed in this critical care notation. Medical Decision Making - Medical Records Medical records reviewed: Yes: I reviewed the patient's medical records. - Louis Inquiry Pt receiving controlled substance: No Vital Signs: 01/26/20 22:46 Temperature 97.7 F Temperature Source Temporal Artery Scan Pulse Rate [Right Brachial] 81 Respiratory Rate 16 Blood Pressure [Right Arm] 156/98 H Blood Pressure Mean [Right Arm] 117 Blood Pressure Source [Right Arm] Automatic Cuff Blood Pressure Position [Right Arm] Sitting 02 Sat by Pulse Oximetry 98 Oxygen Delivery Method Room Air Orders (Tests/Meds): ORDERS Category Date Time Status Wound Culture and Gram Stain Stat Micro 01/26/20 23:32 Received Wound/Laceration HPI - General Chief Complaint: Wound/Laceration Stated Complaint: AO 1024 lac, Top of Lac is open,red Time Seen by Provider: 01/26/20 23:10 Mode of Arrival: Family Vehicle Source of Information: Patient, Medical Record Limitations: No Limitations Description of Symptoms (Recalled from ER Triage Doc. by RN): wants to have his rle wound checked out. stated he had sutures placed in his knee from a chainsaw accident on 12/31/19; sutures removed 10 days later. noted a large scab came off and he is afraid underneath it looks infected. wants a re-eval of the site. - History of Present Illness HPI narrative: pt with prev lac to rt knee and was doing ok but opened tonight - no fever or other c/o Onset (ago): day(s) Extremity Location: Right: knee Place: home Patient tetanus UTD: Yes Context: other (prev lac ) Associated symptoms: none - Related Data Previous Rx's Medication Instructions Recorded Mupirocin [Bactroban 2% Ointment 1 applicatio TP BID #1 tube 01/26/20 22gm tube] Allergies Allergy/AdvReac Type Severity Reaction Status Date / Time shellfish derived Allergy Severe Anaphylaxis Verified 11/09/19 15:21 [facility] History - Hepatitis A Screen Drug use history?: No High risk sexual behaviors?: No History of sexually transmitted infection?: No Currently employed?: No Childcare worker?: No Do you have indoor plumbing?: Yes Do you have electricity?: Yes Attestation statement:: This patient has been screened for Hepatitis A risk factors. I have reviewed the patient's past medical history: Yes 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: Reports:: Anxiety, Asthma, Depression, Gastroesophageal Reflux Disease(GERD) Denies:: Cancer, Diabetes Mellitus Type 1, Diabetes Mellitus Type 2, MRSA Other Surgeries: Yes: No Previous Surgery Amputation: No Fractures: No - Social History Smoking Status: Current every day smoker Tobacco Type: cigarettes # Packs/Day (cigarettes): 1 Alcohol Intake: never Alcohol Intake Frequency:: a few times a month Substance Use Type: denies use Occupational Status: other Housing: house Household Members: children, spouse - Psychiatric History Pschychiatric History:: Reports:: Anxiety, Depression Family Hx:: Diabetes, Hypertension ROS Obt
[2020-01-27 00:01] VITALS: BP 129/83; PULSE 81; RESP 16; TEMP 36.7; O2SAT 95
== END 2020-01-27 00:08 | disposition home or self-care (01) ==
PROVIDERS: Emergency Provider Emergency Medicine; PCP Internal Medicine Adolescent Medicine
DX: L03.115 Cellulitis of right lower limb (principal); B95.7 Other staphylococcus as the cause of diseases classified elsewhere; F41.9 Anxiety disorder, unspecified; K21.9 Gastro-esophageal reflux disease without esophagitis; J45.909 Unspecified asthma, uncomplicated; F17.210 Nicotine dependence, cigarettes, uncomplicated
CPT/HCPCS: 87070; 87077; 87186; 87205; 99282

== ENCOUNTER 2020-03-15 17:34 | Emergency (ER) | payer MEDICAID, SELFPAY ==
[2020-03-15 17:36] VITALS: BP 141/75; PULSE 90; RESP 14; TEMP 36.9; O2SAT 98; BMI 27.8
--- NOTE | 2020-03-15 17:53 | HMH.EDUTC ---
[facility] – [place] Disposition Clinical Impression: Bronchitis Sinusitis Qualifiers: Sinusitis location: unspecified location Chronicity: acute Recurrence: non-recurrent Qualified Code(s): J01.90 - Acute sinusitis, unspecified Disposition: Home, Self-Care Condition on Discharge: Good Instructions: Sinusitis, DI for Sinusitis Additional Instructions: Drink plenty of fluids. Take tylenol for pain or fever. Return if you begin to have difficulty breathing. Follow up with your regular doctor. GO TO THE ER FOR ANY WORSENING SYMPTOMS Prescriptions: methylPREDNISolone [Medrol] 4 mg PO DIRECTED 6 Days #21 tab.ds.pk Transmission Status: Received by [facility] Benzonatate [Tessalon Perle 100mg Cap] 100 mg PO TIDP PRN #30 cap PRN Reason: Cough Transmission Status: Received by [facility] Azithromycin [Z-Marbin 250mg Tab*] 250 mg PO UD DOSE PK #6 tab Transmission Status: Received by [facility] Referrals: Jovan Dickinson MD [Primary Care Provider] - Forms: Work/School Release Time of Disposition: 18:36 Medical Decision Making - Medical Records Medical records reviewed: No: I reviewed the patient's medical records. - Louis Inquiry Pt receiving controlled substance: No Vital Signs: 03/15/20 17:36 03/15/20 18:38 Temperature 98.5 F 98.5 F Temperature Source Oral Pulse Rate 90 Pulse Rate [Right] 90 Respiratory Rate 14 14 Blood Pressure 141/75 H Blood Pressure [Right Arm] 141/75 H Blood Pressure Mean [Right Arm] 97 02 Sat by Pulse Oximetry 98 Orders (Tests/Meds): ED MEDICATIONS Discontinued Medications Generic Name Dose Route Start Last Admin Trade Name Freq PRN Reason Stop Dose Admin Ceftriaxone Sodium 1 gm 03/15/20 18:18 03/15/20 18:24 Ceftriaxone 1gm Vial IM 03/15/20 18:19 1 gm ONCE ONE Administration Protocol Lidocaine HCl 0 ml 03/15/20 18:18 03/15/20 18:24 Lidocaine 1% 5ml Pf Vial IM 03/15/20 18:19 5 ml ONCE ONE Administration Methylprednisolone Sodium Succinate 125 mg 03/15/20 18:18 03/15/20 18:24 Methylprednisolone Sod Succ 125mg Vial IM 03/15/20 18:19 125 mg ONCE ONE Administration [facility] [place] HPI - General Stated complaint: cough,congestion Time Seen by Provider: 03/15/20 17:53 - History of Present Illness Provider Complaint: He c/o cough, chest congestion, and sinus congestion for the past 2 days. He denies fever, but he has been chilling. He has a history of getting pneumonia and bronchitis fairly often. - Related Data Previous Rx's Medication Instructions Recorded Mupirocin [Bactroban 2% Ointment 1 applicatio TP BID #1 tube 01/26/20 22gm tube] Azithromycin [Z-Marbin 250mg Tab*] 250 mg PO UD DOSE PK #6 tab 03/15/20 Benzonatate [Tessalon Perle 100mg 100 mg PO TIDP PRN #30 cap 03/15/20 Cap] methylPREDNISolone [Medrol] 4 mg PO DIRECTED 6 Days #21 03/15/20 tab.ds.pk Allergies Allergy/AdvReac Type Severity Reaction Status Date / Time shellfish derived Allergy Severe Anaphylaxis Verified 03/15/20 17:40 [facility] History - Hepatitis A Screen Attestation statement:: This patient has been screened for Hepatitis A risk factors. I have reviewed the patient's past medical history: Yes 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: Reports:: Anxiety, Asthma, Depression, Gastroesophageal Reflux Disease(GERD) Denies:: Cancer, Diabetes Mellitus Type 1, Diabetes Mellitus Type 2, MRSA Other Surgeries: Yes: No Previous Surgery Amputation: No Fractures: No - Social History Smoking Status: Current every day smoker Tobacco Type: cigarettes # Packs/Day (cigarettes): 1 Alcohol Intake: never Alcohol Intake Frequency:: a few times a month Substance Use Type: denies use Occupational Status: other Housing: house Household Members: children, spouse - Psychiatric History Pschychiatric History:: Reports:: Anxiety, Depression Family Hx:: Diabetes, Hypertension ROS Obtained: Yes All systems reviewed & no additional complaints -
[2020-03-15 18:38] VITALS: BP 141/75; PULSE 90; RESP 14; TEMP 36.9; O2SAT 98
== END 2020-03-15 18:39 | disposition home or self-care (01) ==
PROVIDERS: Emergency Provider Nurse Practitioner Family; PCP Internal Medicine Adolescent Medicine
DX: J20.9 Acute bronchitis, unspecified (principal); J01.90 Acute sinusitis, unspecified; F41.8 Other specified anxiety disorders; K21.9 Gastro-esophageal reflux disease without esophagitis; J45.909 Unspecified asthma, uncomplicated; F17.210 Nicotine dependence, cigarettes, uncomplicated; Z79.899 Other long term (current) drug therapy
CPT/HCPCS: 99202; G0463; U0003

== ENCOUNTER 2020-07-31 20:07 | Emergency (ER) | payer MEDICAID, SELFPAY ==
[2020-07-31 20:10] VITALS: BP 129/87; PULSE 86; RESP 18; TEMP 36.7; O2SAT 99; BMI 27.9
--- NOTE | 2020-07-31 20:45 | HMH.EDUTC ---
[facility] [place] Clinical Impression: Bronchitis Sinusitis Qualifiers: Sinusitis location: unspecified location Chronicity: unspecified Qualified Code(s): J32.9 - Chronic sinusitis, unspecified Disposition: Home, Self-Care Condition on Discharge: Good Instructions: Sinusitis, DI for Sinusitis, DI for Acute Bronchitis, Prednisone, Azithromycin Additional Instructions: ? Start antibiotic today. Be sure to complete entire prescription even if feeling better ? Monitor temp. Tylenol every 4 hours as needed and / or ibuprofen every 6 hours as needed ( As long as your primary care physician has told you that it ok to take both. For fever/aches/pains ER if no less than 101 despite Tylenol or Motrin ? Humidifier/vaporizer or hot steamy shower ? Inhaler every 4-6 hours as needed like we discussed. If unsure how to use it, ask pharmacist to demonstrate how. Should help open airways and improve cough, wheezing, and shortness of breath ? Mucinex during the day for your cough and cough suppressant only at night. Be sure to drink lots of water. Insurance may not cover a prescriptions for mucinex. Might be cheaper to get 400mg tablets and take 2 tablet in the morning, mid-day and evening with lots of water. *Start steroid today. Helps with inflammation therefore, cough and wheezing. Follow directions on the package. Reviewed side effects. Patient reports taking them before. Follow up IMMEDIATELY for new or worsening of symptoms OR no noticeable improvement over the next 48-72 hours. 911 immediately for any life threatening symptoms such as chest pain or difficulty breathing Prescriptions: predniSONE [Deltasone 10mg tablet] 10 mg PO BID 5 Days #10 tab Transmission Status: Received by [facility] Azithromycin [Z-Marbin 250mg Tab] 250 mg PO DIRECTED #6 tab Transmission Status: Received by [facility] Referrals: Jovan Dickinson MD [Primary Care Provider] - As needed Time of Disposition: 21:57 Medical Decision Making - Louis Inquiry Pt receiving controlled substance: No Louis was queried for this patient: No Vital Signs: 07/31/20 20:10 07/31/20 20:54 Temperature 98.1 F 98.1 F Temperature Source Oral Pulse Rate 86 Pulse Rate [Right Brachial] 86 Respiratory Rate 18 18 Blood Pressure 129/87 Blood Pressure [Right Arm] 129/87 Blood Pressure Mean [Right Arm] 101 Blood Pressure Source [Right Arm] Automatic Cuff Blood Pressure Position [Right Arm] Sitting 02 Sat by Pulse Oximetry 99 Oxygen Delivery Method Room Air Orders (Tests/Meds): ED MEDICATIONS Discontinued Medications Generic Name Dose Route Start Last Admin Trade Name Yosef PRN Reason Stop Dose Admin Albuterol Sulfate 2 puffs 07/31/20 20:47 07/31/20 20:54 Albuterol-Hfa 90mcg/Puff Inhaler 8gm IH 08/30/20 20:46 2 puffs Q4HP PRN Administration Shortness Of Breath Azithromycin 500 mg 07/31/20 20:47 07/31/20 20:54 Azithromycin 250mg Tablet PO 07/31/20 20:48 500 mg ONCE ONE Administration Protocol Miscellaneous 1 unit 07/31/20 20:47 07/31/20 20:54 Aerochamber/Optihaler MC 07/31/20 20:48 1 unit ONCE ONE Administration Prednisone 20 mg 07/31/20 20:47 07/31/20 20:53 Prednisone 20mg Tab PO 07/31/20 20:48 20 mg ONCE ONE Administration [facility] [place] - General Stated complaint: stuffy nose, congestion Time Seen by Provider: 07/31/20 20:45 Mode of Arrival: Ambulatory Source of Information: Patient Limitations: No Limitations Description of Symptoms (Recalled from Triage Doc. by RN): PATIENT C/O COUGH AND CHEST CONGESTION X 1 WEEK HEENT Symptoms (Recalled from RN notes): No Resp Symptoms (Recalled from RN notes): No Skin Symptoms (Recalled from RN notes): No MS Symptoms (Recalled from RN notes): No Functional Status (Recalled from RN notes): wnl - History of Present Illness Provider Complaint: Patient states that he has been having sinus pain and pressure along with cough for over a week States
[2020-07-31 20:54] VITALS: BP 129/87; PULSE 86; RESP 18; TEMP 36.7; O2SAT 99
== END 2020-07-31 21:00 | disposition home or self-care (01) ==
PROVIDERS: Emergency Provider Nurse Practitioner; PCP Internal Medicine Adolescent Medicine
DX: J20.9 Acute bronchitis, unspecified (principal); J32.9 Chronic sinusitis, unspecified; J45.909 Unspecified asthma, uncomplicated; F41.8 Other specified anxiety disorders; K21.9 Gastro-esophageal reflux disease without esophagitis; F17.210 Nicotine dependence, cigarettes, uncomplicated; Z79.899 Other long term (current) drug therapy
CPT/HCPCS: 99202; G0463

== ENCOUNTER → 2020-10-03 17:19 | Outpatient (CLI) | payer MEDICAID, SELFPAY ==
--- NOTE | 2020-10-03 | XR_ITS ---
PROCEDURE: XR HAND RT MIN 3V CLINICAL INDICATION: Pain COMPARISON: No exams were available for comparison FINDINGS: No fracture or dislocation. No lytic or blastic change. There is normal mineralization. The joint spaces are well-preserved. No significant degenerative/arthritic changes. No erosive changes evident. Other findings:None. IMPRESSION: No acute findings. Dictated by: Suhas Jackson MD 10/05/2020 07:39 Suhas Jackson MD in [place] 10/05/2020 07:39
== END ==
PROVIDERS: PCP Internal Medicine Adolescent Medicine; Visit Provider Internal Medicine Adolescent Medicine
DX: R22.31 Localized swelling, mass and lump, right upper limb (principal)
CPT/HCPCS: 73130

== ENCOUNTER → 2020-10-04 07:35 | Outpatient (CLI) | payer MEDICAID, SELFPAY ==
[2020-10-04 08:00] LABS: Basophils # 0.1 K/mm3 (0-0.2); Basophils % 0.8 % (0.1-2.0); Eosinophils # 0.6 K/mm3 (0.0-0.4); Eosinophils % 6.2 % (0.1-12.0); Hematocrit 45.6 % (42.0-52.0); Hemoglobin 14.9 g/dL (14.1-18.0); Lymphocytes # 1.9 K/mm3 (0.7-4.5); Lymphocytes % 20.7 % (10-50); Mean Corpuscular HGB Conc 32.6 g/dL (31.8-35.4); Mean Platelet Volume 7.3 fl (7.4-10.4); Monocytes # 0.6 K/mm3 (0.1-1.0); Monocytes % 6.4 % (1.7-9.3); Neutrophils # 6.1 K/mm3 (1.8-7.8); Platelet Count 339 K/mm3 (142-424); Red Cell Distribution Width 13.8 % (11.5-17.5); White Blood Count 9.2 K/mm3 (4.8-10.8)
[2020-10-04 08:40] LABS: Alanine Aminotransferase 23 U/L (12-78); Albumin Level 4.1 g/dl (3.5-5.0); Albumin/Globulin Ratio 1.6 (1.1-1.8); Alkaline Phosphatase 109 U/L (38-126); Anion Gap 14.3 mEq/L (5-15); Aspartate Amino Transferase 24 U/L (17-59); Bilirubin,Total 0.5 mg/dl (0.2-1.3); Blood Urea Nitrogen 16 mg/dl (9-20); Calcium 8.8 mg/dl (8.4-10.2); Carbon Dioxide 23 mmol/L (22.0-30.0); Chloride 109 mmol/L (98-107); Chol/HDL Ratio 5.1 (1-3.5); Cholesterol 154 mg/dl (140-200); Estimated Glomerular Filt Rate 110 ml/min (>60); GFR (African American) 133 ML/MIN (>60); Globulin 2.6 g/dL (1.3-3.2); Glucose 90 mg/dl (74-100); HDL Cholesterol 30 mg/dl (40-60); Potassium 4.3 mmoL/L (3.5-5.1); Sodium 142 mmol/L (136-145); Total Protein,Serum 6.7 g/dl (6.3-8.2); Triglycerides 120 mg/dl (30-150); VLDL Cholesterol 24 mg/dL (0-40)
[2020-10-04 08:50] LABS: Direct LDL Cholesterol 96.93 mg/dL (100-129); Hemoglobin A1C 5.3 % (4.0-6.0)
[2020-10-04 09:10] LABS: Thyroid Stimulating Hormone 2.23 uIU/mL (0.465-4.68)
[2020-10-04 09:29] LABS: Vitamin B12 598 pg/mL (239-931)
== END ==
PROVIDERS: Visit Provider Nurse Practitioner Family
DX: R63.1 Polydipsia (principal); R35.8 Other polyuria; R53.81 Other malaise; Z83.3 Family history of diabetes mellitus
CPT/HCPCS: 36415; 80053; 80061; 82607; 83036; 84443; 85025

== ENCOUNTER 2021-01-29 14:41 | Emergency (ER) | payer MEDICAID, SELFPAY ==
[2021-01-29 15:23] VITALS: BP 111/87; PULSE 84; RESP 16; TEMP 36.9; O2SAT 98; BMI 26.6
--- NOTE | 2021-01-29 15:33 | HMH.EDUTC ---
[facility] – [place] Disposition Clinical Impression: Strep throat Disposition: Home, Self-Care Condition on Discharge: Good Instructions: Strep Throat, DI for Strep Throat Additional Instructions: *Monitor Temp, Over the counter Motrin or Tylenol as directed/as needed Tylenol every 4 hours and Motrin every 6 hours (as long as your family doctor has told you that you can take it) for fever or pain. and straight to ER if unable to lower temp less than 101.0 after medication given *Warm salt water gargles may help to soothe the throat *Throat Lozenges *Warm fluids like tea with honey may help to soothe the throat *Sleep elevated *Humidifier/Vaporizer *If you did not take Penicillin shot or was unable to, start taking antibiotic immediately and make sure that you take it for the FULL length of time although you should start to feel better in 24-48 hours *change toothbrush and toothpaste 24-48 hours after starting to take antibiotics so you do not reinfect yourself Monitor Temp. Tylenol and/or Ibuprofen as needed. ER if fever is no less than 101 despite alternating Tylenol and Ibuprofen * Encourage fluids, water, Gatorade, powerade, pedialyte if infant/toddler/or child *Cold fluids, popsicles and ice cream may feel good on his throat Follow up IMMEDIATELY for new or worsening symptoms or no Noticeable improvement over the next 48-72 hours. 911 for difficulty breathing or swallowing Referrals: Jovan Dickinson MD [Primary Care Provider] - As needed Time of Disposition: 16:16 Medical Decision Making - Louis Inquiry Pt receiving controlled substance: No Louis was queried for this patient: No Vital Signs: 01/29/21 15:23 Temperature 98.4 F Temperature Source Oral Pulse Rate [Left] 84 Respiratory Rate 16 Blood Pressure [Right Arm] 111/87 Blood Pressure Mean [Right Arm] 95 02 Sat by Pulse Oximetry 98 - Lab Data Lab Results 01/29/21 15:17: Strep [facility] Positive A Orders (Tests/Meds): ED MEDICATIONS Discontinued Medications Generic Name Dose Route Start Last Admin Trade Name Freq PRN Reason Stop Dose Admin Penicillin G Benzathine 1,200,000 unit 01/29/21 15:39 01/29/21 15:47 Penicillin G Benzathine 1,200,000 Units/2ml Syringe IM 01/29/21 15:40 1,200,000 unit ONCE ONE Administration [facility] [place] HPI - General Stated complaint: sore throat, cough Time Seen by Provider: 01/29/21 15:33 Mode of Arrival: Ambulatory Source of Information: Patient Limitations: No Limitations Description of Symptoms (Recalled from Triage Doc. by RN): pt c/o a cough and sore throat. pt thinks his daughter has strep. HEENT Symptoms (Recalled from RN notes): Yes (sore throat) Resp Symptoms (Recalled from RN notes): Yes (cough) Skin Symptoms (Recalled from RN notes): No MS Symptoms (Recalled from RN notes): No Functional Status (Recalled from RN notes): na - History of Present Illness Provider Complaint: Patient states that he has been having sore scratchy throat and cough State that he thinks he daughter has strep and he may have caught it off of her so he came in to get checked - Related Data Previous Rx's Medication Instructions Recorded Azithromycin [Z-Marbin 250mg Tab] 250 mg PO DIRECTED #6 tab 07/31/20 predniSONE [Deltasone 10mg tablet] 10 mg PO BID 5 Days #10 tab 07/31/20 Allergies Allergy/AdvReac Type Severity Reaction Status Date / Time shellfish derived Allergy Severe Anaphylaxis Verified 01/15/21 12:58 - Worker's Comp Is this a Worker's Comp case?: No [facility] History - Hepatitis A Screen Drug use history?: No High risk sexual behaviors?: No History of sexually transmitted infection?: No Currently employed?: No Childcare worker?: No Do you have indoor plumbing?: Yes Do you have electricity?: Yes Attestation statement:: This patient has been screened for Hepatitis A risk factors. 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: Reports:: Anxiety, Asthma, Depression, Gastroesophageal Reflux Disease(GERD) Denies::
[2021-01-29 15:34] LABS: UTC Strep Screen (Rapid) Positive (Negative)
[2021-01-29 16:26] VITALS: BP 111/87; PULSE 98; RESP 16; TEMP 36.9
== END 2021-01-29 16:29 | disposition home or self-care (01) ==
PROVIDERS: Emergency Provider Nurse Practitioner; PCP Internal Medicine Adolescent Medicine
DX: J02.0 Streptococcal pharyngitis (principal); F41.8 Other specified anxiety disorders; K21.9 Gastro-esophageal reflux disease without esophagitis; F17.210 Nicotine dependence, cigarettes, uncomplicated
CPT/HCPCS: 87880; 96372; 99202; G0463; J0561

== ENCOUNTER 2021-04-09 23:06 | Emergency (ER) | payer MEDICAID, SELFPAY ==
[2021-04-09 23:07] VITALS: BP 127/77; PULSE 87; RESP 16; TEMP 36.7; O2SAT 96; BMI 25.8
--- NOTE | 2021-04-09 23:16 | XR_ITS ---
PROCEDURE INFORMATION: Exam: XR Right Hand Exam date and time: 04/09/2021 11:16 PM Age: 36 years old Clinical indication: Finger(s) and hand; Right; Patient HX: C/O pain around 3rd digit TECHNIQUE: Imaging protocol: XR Right hand. Views: 3 or more views. 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 No acute fracture or malalignment. Soft tissues: Unremarkable. IMPRESSION: 1. No acute osseous abnormality in the right hand. 2. 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
--- NOTE | 2021-04-09 23:24 | HMH.EDUPEXT ---
ED Disposition Clinical Impression: Finger sprain Disposition: Home, Self-Care Condition on Discharge: Good Instructions: Sprain Additional Instructions: Please use the splint for comfort. Please take tylenol and ibuprofen for pain control. Please follow up with your primary care physician in 2-3 days for further management. Referrals: Jovan Dickinson MD [Primary Care Provider] - Time of Disposition: 01:10 - Critical Care Critical Care Time: No Attestation: On , the high probability of a clinically significant, sudden or life threatening deterioration of the following system(s) required my full and direct attention, intervention and personal management. The time I documented below is in addition to time spent performing reported procedures but includes the following listed in this critical care notation. Medical Decision Making - Medical Records Medical records reviewed: Yes: I reviewed the patient's medical records. - Louis Inquiry Pt receiving controlled substance: No Vital Signs: 04/09/21 23:07 04/10/21 00:55 04/10/21 01:06 Temperature 98.1 F 98.1 F Temperature Source Oral Pulse Rate 87 95 H Pulse Rate [Right Radial] 87 Respiratory Rate 16 18 16 Blood Pressure 113/78 113/78 Blood Pressure [Right Arm] 127/77 Blood Pressure Mean [Right Arm] 93 Blood Pressure Source [Right Arm] Automatic Cuff Blood Pressure Position [Right Arm] Sitting 02 Sat by Pulse Oximetry 96 95 Oxygen Delivery Method Room Air Room Air - Lab Data Lab results reviewed: Yes: I reviewed the patient's lab results. Orders (Tests/Meds): ED MEDICATIONS Discontinued Medications Generic Name Dose Route Start Last Admin Trade Name Freq PRN Reason Stop Dose Admin Acetaminophen 1,000 mg 04/09/21 23:16 04/09/21 23:19 Acetaminophen 500mg Tab PO 04/09/21 23:17 1,000 mg ONCE ONE Administration Medical Decision Narrative: Mr. Sheridan is a 36 yo male w/ no significant PMH who presents to the ED for (R) hand pain following a mechanical fall around 2:30p today. Patient is neurovascularly intact w/ no sensory or motor deficits on exam. Patient is hemodynamically stable. patient denies hitting head, -LOC. No wrist pain, forearm pain or elbow pain. No shoulder pain or clavicle pain. Differentials to consider include: fractures, dislocations, MSK other polytrauma. XR of the hand shows no evidence of acute fracture, chronic findings found. Patient is given a manufactured brace for comfort. Patient is instructed to fu w/ her primary care physician in 2-3 days for further management. Patient instructed to return for any concerning symptoms such as sensory changes, worsening swelling, pain or any other concerning symptoms. Upper Extremity HPI - General Chief Complaint: Extremity Injury, Upper Stated Complaint: AO02/01 @1430 R hand inj Time Seen by Provider: 04/09/21 23:15 Mode of Arrival: Ambulatory Source of Information: Patient Limitations: No Limitations Description of Symptoms (Recalled from ER Triage Doc. by RN): Pt tripped at 2:30pm today and used his right hand to caught himself from hitting the ground. Pt says he felt a pop in his hand and c/o swelling to right middle and ring finger. Pt has good cap refill to fingers and is able to flex and extend digits but states it is painful. - History of Present Illness HPI narrative: Mr. Sheridan is a 36 yo male w/ no significant PMH who presents to the ED for (R) hand pain following a mechanical fall. Patient reports he was walking and fell from standing landing on his outstretched (R) hand. He reports pain to the mid 3/4th digit w/ swelling. Patient denies hitting head, -LOC. Patient denies neck pain, back pain, chest pain, abdominal pain, headache at this time. Patient has no sensory or motor deficits. No open lacerations or abrasions. Full ROM. MD complaint: injury to: right, hand Onset (ago): hour(s) Other Extremity Injury: Right: fingers, hand Other injuries: none
[2021-04-10 00:55] VITALS: BP 113/78; PULSE 87; RESP 18; O2SAT 95
[2021-04-10 01:06] VITALS: BP 113/78; PULSE 95; RESP 16; TEMP 36.7
== END 2021-04-10 01:07 | disposition home or self-care (01) ==
PROVIDERS: Emergency Provider Student in an Organized Health Care Education/Training Program; PCP Internal Medicine Adolescent Medicine
DX: S63.619A Unspecified sprain of unspecified finger, initial encounter (principal); W18.40XA Slipping, tripping and stumbling without falling, unspecified, initial encounter; F41.9 Anxiety disorder, unspecified; J45.909 Unspecified asthma, uncomplicated; F32.A Depression, unspecified; K21.9 Gastro-esophageal reflux disease without esophagitis; F17.210 Nicotine dependence, cigarettes, uncomplicated
CPT/HCPCS: 73130; 99282

== ENCOUNTER 2021-05-16 12:31 | Emergency (ER) | payer MEDICAID, SELFPAY ==
[2021-05-16 12:32] VITALS: BP 136/94; PULSE 115; RESP 20; TEMP 37.7; O2SAT 98; BMI 25.7
--- NOTE | 2021-05-16 12:36 | PC.NURSE ---
Patient ambulatory to restroom
--- NOTE | 2021-05-16 12:42 | XR_ITS ---
FINAL REPORT TECHNIQUE: Single view chest CLINICAL HISTORY: coughing up blood COMPARISON: 01/10/2020 FINDINGS: A single view of the chest was obtained. The heart and mediastinum are within normal limits. The lungs are clear. There is no pneumothorax. Osseous structures are unremarkable. IMPRESSION: No acute cardiopulmonary process. Reviewed, Interpreted and Dictated by Collin Nathan III, MD Transcribed by Hermelinda Becker Authenticated by Collin Nathan III, MD on 05/16/2021 01:26:[address] [facility]
--- NOTE | 2021-05-16 12:51 | HMH.EDNVD ---
ED Disposition Clinical Impression: Gastroenteritis, Atrial myxoma Disposition: Home, Self-Care Condition on Discharge: Good Instructions: DI for Viral Gastroenteritis -- Adult Prescriptions: Dicyclomine HCl [Bentyl 10mg capsule] 10 mg PO QID #28 cap Transmission Status: Pending to [facility] Ondansetron [Zofran 4mg ODT] 4 mg PO BIDP PRN #10 tab PRN Reason: Nausea Transmission Status: Pending to [facility] Referrals: Jovan Dickinson MD [Primary Care Provider] - Luis Rodriges MD [Staff Physician] - - Critical Care Critical Care Time: No Attestation: On 05/16/21, the high probability of a clinically significant, sudden or life threatening deterioration of the following system(s) required my full and direct attention, intervention and personal management. The time I documented below is in addition to time spent performing reported procedures but includes the following listed in this critical care notation. Medical Decision Making - Medical Records Medical records reviewed: Yes: I reviewed the patient's medical records. - Louis Inquiry Pt receiving controlled substance: No Vital Signs: 05/16/21 12:32 05/16/21 13:00 Temperature 99.8 F H Temperature Source Oral Pulse Rate 101 H Pulse Rate [Radial] 115 H Respiratory Rate 20 20 Blood Pressure 142/85 H Blood Pressure [Right Arm] 136/94 H Blood Pressure Mean 104 Blood Pressure Mean [Right Arm] 108 Blood Pressure Position [Right Arm] Sitting 02 Sat by Pulse Oximetry 98 92 L Oxygen Delivery Method Room Air - Lab Data Lab Results 05/16/21 12:40: Urine Color Yellow, Urine Appearance Clear, Urine pH 6.0, Ur Specific [place] >= 1.030, Urine Protein 1+, Urine Glucose (UA) Negative, Urine Ketones Trace, Urine Blood 1+, Urine Nitrate Negative, Urine Bilirubin Negative, Urine Urobilinogen 0.2, Ur Leukocyte Esterase Negative, Urine RBC 3-5, Urine WBC Occasional, Ur Squamous Epith Cells Occasional, Urine Bacteria Trace 05/16/21 13:27: WBC 14.0 H, RBC 5.67, Hgb 14.5, Hct 44.9, MCV 79.1 L, MCH 25.6 L, MCHC 32.4, RDW 14.3, Plt Count 411, MPV 8.2, Neut % (Auto) 92.0 H, Lymph % (Auto) 3.4 L, [place] % (Auto) 3.6, Eos % (Auto) 0.7, Baso % (Auto) 0.3, Neut # (Auto) 12.8 H, Lymph # (Auto) 0.5 L, [place] # (Auto) 0.5, Eos # (Auto) 0.1, Baso # (Auto) 0.0, Total Counted 100, Neutrophils % (Manual) 90 H, Lymphocytes % (Manual) 5 L, Monocytes % (Manual) 5, Platelet Estimate Normal, RBC Morphology Normal 05/16/21 13:27: Sodium 135 L, Potassium 4.8, Chloride 103, Carbon Dioxide 22, Anion Gap 14.8, BUN 23 H, Creatinine 0.80, Estimated Creat Clear 160, Estimated GFR 109, Est GFR ( Amer) 132, Glucose 111 H, Calcium 8.2 L, Total Bilirubin 0.8, AST 48, ALT 38, Alkaline Phosphatase 113, Total Protein 8.3 H, Albumin 4.5, Globulin 3.8 H, Albumin/Globulin Ratio 1.2, Lipase 33 05/16/21 13:27: Plasma/Serum Alcohol < 10 Result diagrams: 05/16/21 13:27 05/16/21 13:27 Orders (Tests/Meds): ED MEDICATIONS Discontinued Medications Generic Name Dose Route Start Last Admin Trade Name Yosef PRN Reason Stop Dose Admin Acetaminophen 1,000 mg 05/16/21 13:33 05/16/21 14:18 Acetaminophen 500mg Tab PO 05/16/21 13:34 1,000 mg ONCE ONE Administration Sodium Chloride 1,000 mls @ 999 mls/hr 05/16/21 13:45 05/16/21 13:43 Sod Chlor 0.9% 1000ml Bag IV 05/16/21 14:45 999 mls/hr .Q1H1M JASON Administration Iopamidol 75 ml 05/16/21 14:38 05/16/21 14:39 Iopamidol-370 (76%);100ml Bottle IV 05/16/21 14:39 75 ml ONCE ONE Administration Promethazine HCl 25 mg 05/16/21 12:42 05/16/21 13:31 Promethazine Hcl 25mg/Ml 1ml Vial IV 03/10/22 12:43 25 mg ONCE ONE Administration Sodium Chloride 25 ml 05/16/21 12:42 05/16/21 13:30 Sodium Chloride 0.9% 25ml Bag IV 05/16/21 12:43 25 ml ONCE ONE Administration Sodium Chloride 10 ml 05/16/21 14:38 05/16/21 14:38 Sodium Chloride 0.9% 10ml Syr (Rad Only) IV 03
[2021-05-16 13:00] VITALS: BP 142/85; PULSE 101; RESP 20; O2SAT 92
[2021-05-16 13:27] LABS: Microscopic, Urine URINE MICROSCOPIC (MICROSCOPIC)
[2021-05-16 13:30] LABS: Appearance,Urine CLEAR (Clear); Bilirubin,Urine Negative (Negative); Blood, Urine 1+ (Negative); Color,Urine YELLOW (Yellow); Glucose,Urine (UA) Negative (Negative); Ketones,Urine TRACE (Negative); Leukocyte Esterase,Urine Negative (Negative); Nitrate,Urine Negative (Negative); Protein,Urine 1+ (Negative); Specific Gravity, Urine >= 1.030 (1.005-1.030); Urobilinogen,Urine 0.2 EU/dl (0.2)
[2021-05-16 13:52] LABS: Chloride 103 mmol/L (98-107); Potassium 4.8 mmoL/L (3.5-5.1); Sodium 135 mmol/L (136-145)
[2021-05-16 13:55] LABS: Alanine Aminotransferase 38 U/L (12-78); Albumin Level 4.5 g/dl (3.5-5.0); Albumin/Globulin Ratio 1.2 (1.1-1.8); Alkaline Phosphatase 113 U/L (38-126); Anion Gap 14.8 mEq/L (5-15); Aspartate Amino Transferase 48 U/L (17-59); Bilirubin,Total 0.8 mg/dl (0.2-1.3); Blood Urea Nitrogen 23 mg/dl (9-20); Calcium 8.2 mg/dl (8.4-10.2); Carbon Dioxide 22 mmol/L (22.0-30.0); Creatinine Clearance Estimated 160 mL/min (50-200); Estimated Glomerular Filt Rate 109 ml/min (>60); GFR (African American) 132 ML/MIN (>60); Globulin 3.8 g/dL (1.3-3.2); Glucose 111 mg/dl (74-100); Lipase 33 U/L (23-300); Total Protein,Serum 8.3 g/dl (6.3-8.2)
[2021-05-16 13:57] LABS: Ethyl Alcohol < 10 mg/dl (0-10)
--- NOTE | 2021-05-16 13:57 | PC.NURSE ---
Lab called to check on delay of lab reports; they were just submitted
[2021-05-16 14:00] LABS: Basophils % 0.3 % (0.1-2.0); Eosinophils # 0.1 K/mm3 (0.0-0.4); Eosinophils % 0.7 % (0.1-12.0); Hematocrit 44.9 % (42.0-52.0); Hemoglobin 14.5 g/dL (14.1-18.0); Lymphocytes # 0.5 K/mm3 (0.7-4.5); Lymphocytes % 3.4 % (10-50); Mean Corpuscular HGB Conc 32.4 g/dL (31.8-35.4); Mean Corpuscular Hemoglobin 25.6 pg (27.0-31.2); Mean Corpuscular Volume 79.1 fl (80-94); Mean Platelet Volume 8.2 fl (7.4-10.4); Monocytes # 0.5 K/mm3 (0.1-1.0); Monocytes % 3.6 % (1.7-9.3); Neutrophils # 12.8 K/mm3 (1.8-7.8); Platelet Count 411 K/mm3 (142-424); Red Blood Count 5.67 M/mm3 (4.60-6.20); Red Cell Distribution Width 14.3 % (11.5-17.5)
--- NOTE | 2021-05-16 14:02 | PC.NURSE ---
Eliza with lab said that CBC was hemolyzed, they has to use blood from different tube and it is currently running at this time
[2021-05-16 14:03] LABS: MANUAL DIFFERENTIAL MANUAL DIFFERENTIAL (MANUAL DIFF)
--- NOTE | 2021-05-16 14:06 | CT_ITS ---
FINAL REPORT TECHNIQUE: After the administration of intravenous contrast, axial images were obtained through the abdomen and pelvis by computed tomography. This study was performed with technique to keep radiation doses as low as reasonably achievable, (ALARA). Individualized dose reduction techniques using automated exposure control or adjustment of the MA and/or KV according to the patient's size were employed. CLINICAL HISTORY: nausea, vomiting blood, diarrhea COMPARISON: 08/11/2019 FINDINGS: Abdomen: There is a 2.8 x 2.8 cm mass in the left atrium which is new from prior exam. Findings may represent thrombus versus mass such as atrial myxoma. The liver is normal in size and attenuation. The gallbladder is present. The spleen is unremarkable. The adrenals are normal. The pancreas is unremarkable. The kidneys enhance appropriately. The aorta is normal in caliber. There is no free fluid or adenopathy. There are multiple fluid-filled bowel loops which are nonspecific. Findings may represent enteritis. Pelvis: The appendix is normal. The urinary bladder is unremarkable. There is no free fluid or adenopathy. Lobular masses are seen in the right gluteal subcutaneous tissues measuring 3.1 cm of uncertain etiology which could represent fluid collections. IMPRESSION: Mass in the left atrium which may represent thrombus versus mass such as atrial myxoma. Dr. Clinton was notified of these findings at 3:05 PM. Multiple fluid-filled bowel loops, nonspecific. Findings may represent enteritis. Lobular masses in the right gluteal subcutaneous tissues of uncertain etiology which could represent fluid collections. Reviewed, Interpreted and Dictated by Collin Nathan III, MD Transcribed by Hermelinda Becker Authenticated by Collin Nathan III, MD on 05/16/2021 03:21:52 PM [facility]
[2021-05-16 14:09] LABS: Squamous Epithelial Cell,Urine Occasional #/hpf (0-5); WBC,Urine Occasional #/hpf (0-3)
[2021-05-16 14:10] LABS: Bacteria,Urine Trace /lpf
[2021-05-16 14:18] LABS: Lymphocytes % 5 % (10-50); Monocytes % 5 % (2-9); Neutrophils % 90 % (42-76); Total Cells Counted 100
[2021-05-16 14:19] LABS: Platelet Estimate Normal; RBC Morphology Normal
--- NOTE | 2021-05-16 14:35 | PC.NURSE ---
pt in ct
--- NOTE | 2021-05-16 14:39 | PC.NURSE ---
pt return from CT
--- NOTE | 2021-05-16 15:04 | PC.NURSE ---
YOAV THOMPSON speaking with radiologist
--- NOTE | 2021-05-16 15:18 | PC.NURSE ---
Patient to ECHO with tech
--- NOTE | 2021-05-16 17:23 | PC.NURSE ---
ED MD at for update on POC
[2021-05-16 18:48] VITALS: BP 123/78; PULSE 78; RESP 16; TEMP 36.6; O2SAT 98
== END 2021-05-16 18:50 | disposition home or self-care (01) ==
PROVIDERS: Emergency Provider Emergency Medicine; PCP Internal Medicine Adolescent Medicine
DX: R11.2 Nausea with vomiting, unspecified (principal); R19.7 Diarrhea, unspecified; R10.9 Unspecified abdominal pain; K21.9 Gastro-esophageal reflux disease without esophagitis; M54.50 Low back pain, unspecified; F32.A Depression, unspecified; F41.9 Anxiety disorder, unspecified; F17.210 Nicotine dependence, cigarettes, uncomplicated; Z79.899 Other long term (current) drug therapy; Z91.013 Allergy to seafood; Z82.49 Family history of ischemic heart disease and other diseases of the circulatory system; Z83.3 Family history of diabetes mellitus
CPT/HCPCS: 71045; 74177; 80053; 81001; 83690; 85007; 85025; 93306; 96361; 96365; 96367; 96374; 99285; Q9967

== ENCOUNTER → 2021-07-05 14:54 | Outpatient (CLI) | payer MEDICAID, SELFPAY ==
--- NOTE | 2021-07-05 14:59 | XR_ITS ---
FINAL REPORT TECHNIQUE: Chest PA & Lateral CLINICAL HISTORY: ACUTE COUGH COMPARISON: May 16, 2021 FINDINGS: TWO-VIEW CHEST 2 views of the chest were performed. The heart size is normal. There are multiple sternotomy wires present. The mediastinum is within normal limits. There is some scarring in the lung bases. The lungs are otherwise clear. There are no pleural effusions. There is no pneumothorax. The bony thorax appears intact. IMPRESSION: No acute cardiopulmonary process. Reviewed, Interpreted and Dictated by Koby Carney MD Transcribed by Trinidad Underwood Authenticated by Koby Carney MD on 07/05/2021 04:25:22 PM [facility]
== END ==
PROVIDERS: PCP Internal Medicine Adolescent Medicine; Visit Provider Internal Medicine Adolescent Medicine
DX: R05.9 Cough, unspecified (principal)
CPT/HCPCS: 71046

== ENCOUNTER 2021-11-07 19:13 | Emergency (ER) | payer MEDICAID, SELFPAY ==
--- NOTE | 2021-11-07 19:37 | XR_ITS ---
PROCEDURE INFORMATION: Exam: XR Chest Exam date and time: 11/07/2021 7:34 PM Age: 36 years old Clinical indication: Cough; Prior surgery; Surgery date: 6+ months; Surgery type: Open heart TECHNIQUE: Imaging protocol: Radiologic exam of the chest. Views: 2 views. COMPARISON: CR XR CHEST 2V 07/05/2021 3:03 PM FINDINGS: Lungs: No consolidation. Pleural spaces: No pneumothorax. Heart/Mediastinum: No cardiomegaly. Bones/joints: Median sternotomy wires. IMPRESSION: No acute findings.
[2021-11-07 19:39] VITALS: BP 128/93; PULSE 100; RESP 15; TEMP 36.8; O2SAT 96; BMI 24.4
--- NOTE | 2021-11-07 20:29 | EXP.UTC ---
Discharge Plan Disposition Patient Disposition: Home, Self-Care Condition: Good Prescriptions Prescriptions: New benzonatate [benzonatate] 100 mg capsule 100 mg PO TIDP PRN (Reason: Cough) Qty: 30 0RF methylprednisolone 4 mg Tablets,Dose Pack 4 mg PO DIRECTED Qty: 21 0RF amoxicillin-pot clavulanate 875-125 mg Tablet 1 tab PO Q12H Qty: 20 0RF No Action naltrexone 50 mg tablet 50 mg PO DAILY Qty: 30 2RF alprazolam [Xanax] 0.25 mg tablet 0.25 mg PO TID PRN (Reason: anxiety) Qty: 60 0RF sertraline 50 MG tablet 50 mg PO DAILY vilazodone 20 MG tablet 20 mg PO DAILY Rx Instructions: must administer with a meal/food ondansetron 4 MG tablet,disintegrating 4 mg PO BIDP PRN (Reason: Nausea) Qty: 10 0RF dicyclomine 10 MG capsule 10 mg PO QID Qty: 28 0RF Referrals Follow up/Referrals: Jovan Dickinson MD [Primary Care Provider] - See instructions Activity Restrictions/Add. Instructions Additional Instructions/Restrictions: Drink plenty of fluids. Take tylenol or ibuprofen for pain or fever. Take the medications as directed. Follow up with your regular doctor. GO TO THE ER FOR ANY WORSENING SYMPTOMS Clinical Impressions Clinical Impression: Bronchitis Stand Alone Forms Stand Alone Forms: Work/School Release Instructions Patient Instructions: DI for Acute Bronchitis Discharge ED Provider: Hayden Birmingham [facility] General Stated complaint: cough Mode of Arrival: Ambulatory Source of Information: Patient Limitations: No Limitations Time Seen by Provider: 11/07/21 19:50 Description of Symptoms (Recalled from Triage Doc. by RN): pt comes in with complaints of bronchitis symptoms for 1 week HEENT Symptoms (Recalled from RN notes): No Resp Symptoms (Recalled from RN notes): Yes Skin Symptoms (Recalled from RN notes): No MS Symptoms (Recalled from RN notes): No Functional Status (Recalled from RN notes): n/a History of Present Illness Provider Complaint: He c/o chest congestion and cough for the past 1 week. He denies shortness of breath, fever, chills and body aches. 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 Related Data Home Medications Medication Instructions Recorded Confirmed sertraline 50 mg tablet 50 mg PO DAILY Depression 05/16/21 05/16/21 vilazodone 20 mg tablet 20 mg PO DAILY unknown 05/16/21 05/16/21 Previous Rx's Medication Instructions Recorded dicyclomine 10 mg capsule 10 mg PO QID #28 caps 05/16/21 ondansetron 4 mg disintegrating 4 mg PO BIDP PRN Nausea #10 tabs 05/16/21 tablet naltrexone 50 mg tablet 50 mg PO DAILY #30 tabs 05/22/21 alprazolam 0.25 mg tablet (Xanax) 0.25 mg PO TID PRN anxiety #60 tabs 06/05/21 amoxicillin 875 mg-potassium 1 tab PO Q12H #20 tabs 11/07/21 clavulanate 125 mg tablet benzonatate 100 mg capsule 100 mg PO TIDP PRN Cough #30 caps 11/07/21 methylprednisolone 4 mg tablets in 4 mg PO DIRECTED #21 tabs 11/07/21 a dose pack Allergies Allergy/AdvReac Type Severity Reaction Status Date / Time shellfish derived Allergy Severe Anaphylaxis Verified 03/27/21 15:07 Worker's Comp Is this a Worker's Comp case?: No PFSH PFSH Social History Smoking Status: Current every day smoker tobacco type: cigarettes packs per day: 1 second hand exposure: Yes alcohol intake: never substance use type: denies use current occupational status: other Travel in the last 8 weeks: None household members: spouse and children housing: house number of children: 5 ROS Obtained: Yes All systems reviewed & no additional complaints except as documented Constitutional Constitutional: Reports chills and Reports fever(s) Eyes Eyes: Denies eye discharge ENT Ears, Nose, Mouth, and Throat: Reports as per HPI Cardiovascular Cardiovascular: Denies chest pain Respiratory Respiratory:
[2021-11-07 20:36] VITALS: BP 123/80; PULSE 107; RESP 18; TEMP 36.9
== END 2021-11-07 20:37 | disposition home or self-care (01) ==
PROVIDERS: Emergency Provider Nurse Practitioner Family; PCP Internal Medicine Adolescent Medicine
DX: J40 Bronchitis, not specified as acute or chronic (principal)
CPT/HCPCS: 71046; 99212; G0463

== ENCOUNTER 2022-03-05 16:44 | Emergency (ER) | payer MEDICAID, SELFPAY ==
[2022-03-05 17:15] VITALS: BP 112/72; PULSE 98; RESP 22; TEMP 37.1; O2SAT 95; BMI 26.4
--- NOTE | 2022-03-05 17:42 | EXP.UTC ---
Discharge Plan Disposition Patient Disposition: Home, Self-Care Condition: Good Prescriptions Prescriptions: New amoxicillin 500 mg capsule 500 mg PO BID 10 Days Qty: 20 0RF No Action Vivitrol 380 mg suspension,extended rel recon 380 mg IM Q4W dicyclomine 10 MG capsule 10 mg PO QID Qty: 28 0RF Referrals Follow up/Referrals: Jovan Dickinson MD [Primary Care Provider] - See instructions Activity Restrictions/Add. Instructions Additional Instructions/Restrictions: *Monitor Temp, Over the counter Motrin or Tylenol as directed/as needed Tylenol every 4 hours and Motrin every 6 hours (as long as your family doctor has told you that you can take it) for fever or pain. and straight to ER if unable to lower temp less than 101.0 after medication given *Warm salt water gargles may help to soothe the throat *Throat Lozenges? *Warm fluids like tea with honey may help to soothe the throat? *Sleep elevated *Humidifier/Vaporizer Your throat swab was sent for culture. Those results are typically sent to your primary care. Be sure to follow up in 2-3 days with your family doctor/primary care physician if no improvement so they can review those result and treat if necessary. If you don?t have a primary care doctor, I recommend you get one but in the mean time, you will have to return to a walk in clinic Follow up IMMEDIATELY for new or worsening symptoms or no Noticeable improvement over the next 48-72 hours. 911 for difficulty breathing or swallowing Clinical Impressions Clinical Impression: URI (upper respiratory infection) Instructions Patient Instructions: Sore Throat Discharge ED Provider: Kinsey Adams [facility] [place] General Stated complaint: sore throat Mode of Arrival: Ambulatory Source of Information: Patient Limitations: No Limitations Time Seen by Provider: 03/05/22 17:42 Description of Symptoms (Recalled from Triage Doc. by RN): PATIENT C/O SORE THROAT X 2 DAYS. RECENTLY EXPOSED TO STREP HEENT Symptoms (Recalled from RN notes): Yes Resp Symptoms (Recalled from RN notes): No Skin Symptoms (Recalled from RN notes): No MS Symptoms (Recalled from RN notes): No Functional Status (Recalled from RN notes): WNL History of Present Illness Provider Complaint: Patient states and child has had strep throat and now for the last 3 days he has been having sore throat so today when his throat was still hurting he came in Related Data Home Medications Medication Instructions Recorded Confirmed naltrexone microspheres 380 mg 380 mg IM Q4W 01/10/22 02/18/22 intramuscular suspension,extended release (Vivitrol) Previous Rx's Medication Instructions Recorded dicyclomine 10 mg capsule 10 mg PO QID #28 caps 05/16/21 amoxicillin 500 mg capsule 500 mg PO BID 10 days #20 caps 03/05/22 Allergies Allergy/AdvReac Type Severity Reaction Status Date / Time shellfish derived Allergy Severe Anaphylaxis Verified 02/18/22 12:53 Worker's Comp Is this a Worker's Comp case?: No [facility] Disclaimer: The information contained in this section may have been updated after the patient was seen, as this information can be updated by other users. 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 (Updated 03/05/22 @ 17:50 by Kinsey Adams APRN) Heroin dependence Surgical History (Updated 03/05/22 @ 17:27 by Christine Talley RN) History of open heart surgery Social History (Updated 03/05/22 @ 17:27 by Christine Talley RN) Smoking Status: Current every day smoker tobacco type: cigarettes packs per day: 1 second hand exposure: Yes alcohol intake: never substance use type: denies use current occupational status: other Travel in the last 8 weeks: None household members: spouse and children housing: house number of children: 5 ROS Obtained: Yes All systems reviewed & no additional complaints except as documented and Yes Systems reviewed as appropriate & no additional complaints except
[2022-03-05 17:54] VITALS: BP 112/72; PULSE 98; RESP 22; TEMP 37.1; O2SAT 95
[2022-03-05 19:25] LABS: UTC Strep Screen (Rapid) Negative (Negative)
== END 2022-03-05 18:01 | disposition home or self-care (01) ==
PROVIDERS: Emergency Provider Nurse Practitioner; PCP Internal Medicine Adolescent Medicine
DX: J06.9 Acute upper respiratory infection, unspecified (principal)
CPT/HCPCS: 87880; 99212; G0463

== ENCOUNTER → 2022-09-01 23:10 | Outpatient (CLI) | payer MEDICAID, SELFPAY ==
[2022-09-01 18:07] LABS: Adenovirus,PCR Not Detected (NotDetected); Bordetella Pertussis Not Detected (NotDetected); Chlamydophila Pneumoniae, PCR Not Detected (NotDetected); Coronavirus 19, PCR Not Detected (NotDetected); Coronavirus 229E Not Detected (NotDetected); Coronavirus NL63 Not Detected (NotDetected); Coronavirus OC43 Not Detected (NotDetected); Coronovirus HKU1,PCR Not Detected (NotDetected); Human Metapneumovirus Not Detected (NotDetected); Influenza A, PCR Not Detected (NotDetected); Influenza AH1, 2009 Not Detected (NotDetected); Influenza AH1, PCR Not Detected (NotDetected); Influenza AH3,PCR Not Detected (NotDetected); Influenza B, PCR Not Detected (NotDetected); Mycoplasma Pneumoniae, PCR Not Detected (NotDetected); Parainfluenza 1, PCR Not Detected (NotDetected); Parainfluenza 3, PCR Not Detected (NotDetected); Parainfluenza 4, PCR Not Detected (NotDetected); Respiratory Syncytial Virus Not Detected (NotDetected); Rhinovirus/Enterovirus Not Detected (NotDetected)
[2022-09-01 21:41] LABS: Parainfluenza 2, PCR Detected (NotDetected)
== END ==
LOC: LAB.DROPOF 23:10
PROVIDERS: PCP Student in an Organized Health Care Education/Training Program; Visit Provider Student in an Organized Health Care Education/Training Program
DX: R05.9 Cough, unspecified (principal)
CPT/HCPCS: 87581; 87632; 87635; 87798; C9803; U0003; U0005

== ENCOUNTER 2023-02-04 11:10 | Emergency (ER) | payer MEDICAID, SELFPAY ==
[2023-02-04 11:15] VITALS: BP 120/65; PULSE 53; RESP 20; TEMP 37.4; O2SAT 96; BMI 25.7
--- NOTE | 2023-02-04 11:26 | EXP.UTC ---
Discharge Plan Disposition Patient Disposition: Home, Self-Care Condition: Good Prescriptions Prescriptions: New benzonatate 100 mg capsule 100 mg PO TID PRN (Reason: cough) Qty: 30 0RF Referrals Follow up/Referrals: Jovan Dickinson MD [Primary Care Provider] - See instructions Activity Restrictions/Add. Instructions Additional Instructions/Restrictions: *Monitor Temp, Over the counter Motrin or Tylenol as directed/as needed Tylenol every 4 hours and Motrin every 6 hours (as long as your family doctor has told you that you can take it) for fever or pain. and straight to ER if unable to lower temp less than 101.0 after medication given *Warm salt water gargles may help to soothe the throat *Throat Lozenges? *Warm fluids like tea with honey may help to soothe the throat? *Sleep elevated *Humidifier/Vaporizer Your throat swab was sent for culture. Those results are typically sent to your primary care. Be sure to follow up in 2-3 days with your family doctor/primary care physician if no improvement so they can review those result and treat if necessary. If you don?t have a primary care doctor, I recommend you get one but in the mean time, you will have to return to a walk in clinic Follow up IMMEDIATELY for new or worsening symptoms or no Noticeable improvement over the next 48-72 hours. 911 for difficulty breathing or swallowing Clinical Impressions Clinical Impression: Viral upper respiratory tract infection with cough Stand Alone Forms Stand Alone Forms: Work/School Release Instructions Patient Instructions: DI for Viral Upper Respiratory Infection -- Adult Discharge ED Provider: Kinsey Adams [facility] General Stated complaint: cough, body aches Mode of Arrival: Ambulatory Source of Information: Patient Limitations: No Limitations Time Seen by Provider: 02/04/23 11:26 Description of Symptoms (Recalled from Triage Doc. by RN): PATIENT C/O COUGH, SCRATCHY THROAT AND BODY ACHES SINCE YESTERDAY HEENT Symptoms (Recalled from RN notes): Yes Resp Symptoms (Recalled from RN notes): Yes Skin Symptoms (Recalled from RN notes): No MS Symptoms (Recalled from RN notes): No Functional Status (Recalled from RN notes): WNL History of Present Illness Provider Complaint: Patient states that he started feeling bad yesterday with sore throat, body aches, and cough States that this morning he woke up and felt like he had been hit by a truck States that he is sore and achy all over and over all not feeling well so he came in to get checked Related Data Previous Rx's Medication Instructions Recorded benzonatate 100 mg capsule 100 mg PO TID PRN cough #30 caps 02/04/23 Allergies Allergy/AdvReac Type Severity Reaction Status Date / Time shellfish derived Allergy Severe Anaphylaxis Verified 09/01/22 15:05 Worker's Comp Is this a Worker's Comp case?: No [facility] Disclaimer: The information contained in this section may have been updated after the patient was seen, as this information can be updated by other users. 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 (Updated 02/04/23 @ 11:40 by Kinsey Adams APRN) Depression Heroin dependence Surgical History History of open heart surgery Social History Smoking Status: Current every day smoker tobacco type: cigarettes packs per day: 1 second hand exposure: Yes alcohol intake: never substance use type: denies use current occupational status: other Travel in the last 8 weeks: None household members: spouse and children housing: house number of children: 5 ROS Obtained: Yes All systems reviewed & no additional complaints except as documented and Yes Systems reviewed as appropriate & no additional complaints except as documented Constitutional Constitutional: Reports system reviewed and no additional complaints, except as document
[2023-02-04 11:37] LABS: UTC Strep Screen (Rapid) Negative (Negative)
[2023-02-04 11:38] LABS: UTC Influenza A Antigen Negative (Negative); UTC Influenza B Antigen Negative (Negative)
[2023-02-04 11:40] VITALS: BP 120/65; PULSE 53; RESP 20; TEMP 37.4; O2SAT 96
== END 2023-02-04 11:44 | disposition home or self-care (01) ==
PROVIDERS: Emergency Provider Nurse Practitioner; PCP Internal Medicine Adolescent Medicine
DX: U07.1 COVID-19 (principal); R05.9 Cough, unspecified; R07.0 Pain in throat; M79.18 Myalgia, other site; F17.210 Nicotine dependence, cigarettes, uncomplicated
CPT/HCPCS: 87635; 87804; 87880; 99212; 99214; G0463

== ENCOUNTER 2023-12-26 12:02 | Outpatient (CLI) | payer MEDICAID, SELFPAY ==
[2023-12-28 21:08] LABS: Trichomonas Vaginalis, NAA Positive (Negative)
[2023-12-29 21:12] LABS: Neisseria gonorrhoeae, NAA Negative (Negative)
== END 2023-12-26 23:59 | disposition home or self-care (01) ==
LOC: LAB 12:03
PROVIDERS: Nurse Practitioner Family; PCP Internal Medicine Adolescent Medicine; Visit Provider Internal Medicine Adolescent Medicine
DX: Z20.2 Contact with and (suspected) exposure to infections with a predominantly sexual mode of transmission (principal)
CPT/HCPCS: 87491; 87591; 87661

== ENCOUNTER 2025-01-17 21:56 | Emergency (ER) | payer SELFPAY ==
[2025-01-17 21:58] VITALS: BP 155/88; PULSE 84; RESP 18; TEMP 36.9; O2SAT 100; BMI 26.9
--- NOTE | 2025-01-17 22:05 | XR_ITS ---
PROCEDURE INFORMATION: Exam: XR Right Forearm Exam date and time: 01/17/2025 10:21 PM Age: 39 years old Clinical indication: Pain; Lower or forearm; Right; Additional info: Truck pires dropped on forearm, hematoma TECHNIQUE: Imaging protocol: Radiologic exam of the right forearm. Views: 2 views. COMPARISON: CR FARMRT XR forearm RT 2V 05/08/2018 3:31 PM FINDINGS: Bones/joints: Normal. Soft tissues: Normal. IMPRESSION: No acute findings.
--- NOTE | 2025-01-17 22:05 | PC.NURSE ---
Hematoma noted to right forearm Pt awake alert and oriented Skin pink warm and dry Resp full and easy Speech clear and appropriate. Radial pulses strong and equal.
--- NOTE | 2025-01-17 22:10 | HMH.EDGENADL ---
Discharge Plan Disposition Patient Disposition: Home, Self-Care Prescriptions Prescriptions: No Action prednisone 20 mg tablet 20 mg PO BID Qty: 10 0RF Rx Instructions: administer with food or milk doxycycline monohydrate 100 mg capsule 100 mg PO BID 7 Days Qty: 14 0RF Referrals Follow up/Referrals: Jovan Dickinson MD [Primary Care Provider, Internal Medicine] - See instructions Activity Restrictions/Add. Instructions Additional Instructions/Restrictions: You can use the compression wrap on your forearm to help decrease the swelling. He can take Tylenol and ibuprofen to help with pain. If you develop any new or worsening symptoms, such as numbness or tingling, weakness in the hand, or if you become concerned for your help for any reason, return to the emergency department for evaluation Clinical Impressions Clinical Impression: Hematoma of right forearm Print Language Print Language: Telugu Discharge ED Provider: Coleman Palmer Adult HPI General Chief complaint: Extremity Injury, Upper Stated complaint: AO dropped truck pires on right arm Time Seen by Provider: 01/17/25 22:05 Mode of Arrival: Ambulatory Source of Information: Patient and Spouse Description of Symptoms (Recalled from ER Triage Doc. by RN): patient presents to the ED for a right arm injury that occured this morning around 10 am. the patient was working on a [employer] 350 when he went to close the pires, it fell and he tried catching it leading to the injury. no numbness or tingling noted. strong pulse History of Present Illness HPI narrative: Sabas Sheridan is a 39-year-old male with no significant past medical history who presents to the emergency department for complaints of a bump on his right arm after having it closed in a a truck pires this morning. Patient states that this happened at approximately 10:00 this morning. Later this evening, he noticed a bump in his mid forearm. He denies any numbness or tingling or weakness. He wants to make sure he does not have a clot. Related Data Previous Rx's ?Medication ?Instructions ?Recorded doxycycline monohydrate 100 mg 100 mg PO BID 7 days #14 caps 07/23/24 capsule prednisone 20 mg tablet 20 mg PO BID #10 tabs 07/23/24 Allergies Allergy/AdvReac Type Severity Reaction Status Date / Time shellfish derived Allergy Severe Anaphylaxis Verified 07/23/24 15:33 [facility] Disclaimer: The information contained in this section may have been updated after the patient was seen, as this information can be updated by other users. 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) Smoking Status: Current every day smoker tobacco type: cigarettes packs per day: 1 second hand exposure: Yes alcohol intake: never substance use type: denies use current occupational status: other Travel in the last 8 weeks?: None household members: spouse and children housing: house number of children: 5 Have you lived/traveled outside [place] in past 30 days?: No Contact w/someone who lives/traveled outside US past 30 days?: No Exposure to someone with infectious disease in past 14 days?: No Do you have a fever (greater than 100.4 F or 38 C)?: No Have you tested positive for COVID-19?: No Exposed to someone with COVID-19 in past 14 days?: No Do you have a sore throat?: No Do you have a cough?: No Do you have any weakness?: No Do you have any diarrhea?: No Are you experiencing any unusual bleeding?: No Do you have any muscle aches/pain?: No Do you have any abdominal pain?: No Are you experiencing loss of taste or smell?: No Other 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 Have you received the Flu Vaccine for this season: Yes Have you received the Pneumonia Vaccine: No ROS Obtained: Yes Systems reviewed as appropriate & no additional complaints except as documented Physical Exam General General appearance: alert and in no apparent distress Head Head exam: atraumatic Eye Eye exam: Present normal appearance ENT ENT exam: Present normal external ear exam Neck Neck exam: Present full ROM Chest Chest inspection: Present symmetric chest wall rise Respiratory Respiratory exam: Present normal lung sounds bilaterally; Absent respiratory distress Cardiovascular Cardiovascular exam: Present regular rate and normal rhythm Abdominal Exam Abdominal exam: Present soft; Absent tenderness or guarding exam: Present deferred Extremities Exam Extremities exam: Present normal inspection Expanded Upper Extremity Exam Right: Comment: RUE: swelling, bruising to the mid forearm. FROM at the wrist and fingers. Sensation intact distally. 2+ radial and ulnar pulses. 5/5 quantitative analyst marketing strength Back Exam Back exam: Present normal inspection Neurological Exam Neurological exam: Present alert and oriented X3 Psychiatric Psychiatric exam: Present normal affect Skin Skin exam: Present warm and dry Medical Decision Making Medical Records Screening: Per USPSTF and CDC recommendations, given the prevalence of disease in our region, it is our hospital?s policy to screen for HIV and viral Hepatitis for all patients aged 18 and over and those with ongoing risk factors. Louis Inquiry Pt receiving controlled substance: No Vital Signs: 01/17/25 21:58 01/17/25 22:15 01/17/25 22:39 Temperature 98.4 F 98.4 F Temperature Source Oral Oral Pulse Rate 89 89 Pulse Rate [Right Radial] 84 Respiratory Rate 18 20 Blood Pressure 148/95 H 140/90 Blood Pressure [Right Arm] 155/88 H Blood Pressure Mean [Right Arm] 110 Blood Pressure Source Automatic Cuff Blood Pressure Source [Right Arm] Automatic Cuff Blood Pressure Position Sitting Blood Pressure Position [Right Arm] Sitting 02 Sat by Pulse Oximetry 100 94 L Oxygen Delivery Method Room Air Room Air Orders (Tests/Meds): ORDERS Category Date Time Status Forearm XR right 2 views [XR forearm RT 2V] Stat Exams 01/17/25 22:05 Completed POCUS Point of Care (ER Only) Stat Exams 01/17/25 22:05 Completed Medical Decision Narrative: Sabas Sheridan is a 39-year-old male with no significant past medical history who presents to the emergency department for complaints of a bump on his right arm after having it closed in a a truck pires this morning. Patient states that this happened at approximately 10:00 this morning. Later this evening, he noticed a bump in his mid forearm. He denies any numbness or tingling or weakness. He wants to make sure he does not have a clot. On arrival, patient is hemodynamically stable, in no acute distress, breathing comfortably on room air with appropriate oxygen saturation. Physical exam, as stated above, revealed an overall well-appearing male in no distress. He has a small area of swelling and bruising to his right forearm but is neurovascularly intact distally with 2+ radial ulnar pulses. Full range of motion at the wrist flexion and extension. Lumbricals intact. Staff Development Manager strength 5 out of 5. There is no pulsatility in the area of bruising and swelling. Differential diagnosis includes, but is not limited to: Hematoma, soft tissue injury, neurovascular injury, fracture, among others. The most morbid conditions were considered and workup was based on these. Workup included: Right forearm x-ray and [id number] soft tissue ultrasound. Soft tissue ultrasounds performed by me personally. There is a small area of hypoechoic fluid that has some heterogeneity within it but no pulsatility on color flow. This is consistent with hematoma and I have low concern for pseudoaneurysm or arterial injury. X-ray was interpreted by me personally. There is no fracture or bony abnormality. Soft tissue swelling is noted. See radiology report for details. Given this, I feel the patient is appropriate for discharge at this time as he likely has a hematoma that should improve over time. Will give Dany bandage for compression wrap. Encouraged him to use Tylenol and ibuprofen. Return precautions were given. All questions were answered. He demonstrated understanding and was in agreement this plan. He was then discharged from the emergency department in stable condition. Critical Care Critical Care Time Critical Care Time: No
[2025-01-17 22:15] VITALS: BP 148/95; PULSE 89; O2SAT 94
--- NOTE | 2025-01-17 22:23 | PC.NURSE ---
xrays done at bedside
[2025-01-17 22:39] VITALS: BP 140/90; PULSE 89; RESP 20; TEMP 36.9; O2SAT 98
--- NOTE | 2025-01-17 22:40 | PC.NURSE ---
PARTH bandage applied to right arm
== END 2025-01-17 22:40 | disposition home or self-care (01) ==
PROVIDERS: Emergency Provider Student in an Organized Health Care Education/Training Program; PCP Internal Medicine Adolescent Medicine
DX: S50.11XA Contusion of right forearm, initial encounter (principal)
CPT/HCPCS: 73090; 99283; 99284